=== PATIENT | female | born 1980 | race Caucasian/White ===

== ENCOUNTER → 2018-09-18 16:02 | Outpatient (CLI) | payer BC, SELFPAY ==
[2017-02-24 14:35] VITALS: BMI 41.5
[2018-09-18 17:47] LABS: Hematocrit 43.4 % (37-47); Mean Corp Hgb Conc 32.3 g/gl (32-36); Mean Corpuscular Hgb 29.1 pg (27.0-32.0); Mean Corpuscular Volume 90.2 fL (81-99); Mean Platelet Vol. 9.5 fl (6.2-12.0); Platelet Count 294 K/mm3 (150-450); RBC Distribution Width CV 12.8 % (11.6-14.6); Red Blood Count 4.81 M/mm3 (4.2-5.4); White Blood Count 7.3 K/mm3 (4.4-11.0)
[2018-09-18 18:01] LABS: Scan Indicated on CBC? Y/N NO
[2018-09-18 18:09] LABS: AST(SGOT) 18 U/L (15-37); Alanine Aminotransfer ALT/SGPT 32 U/L (13-56); Albumin, Serum 3.9 g/dL (3.2-5.0); Alkaline Phosphatase 52 U/L (45-117); Anion Gap 8 (5-15); BUN 12 mg/dL (7-18); BUN/Creat Ratio 15.2 RATIO (10-20); Calcium,Total 8.8 mg/dL (8.5-10.1); Chloride 106 mmol/L (98-107); Creatinine, Serum 0.79 mg/dL (0.55-1.02); EST Glomerular Filtration Rate 87 mL/min (>60); Est Glom Filt Rate - Afr Amer 105 mL/min (>60); Globulin 3.8 g/dL (2.2-4.2); Glucose 89 mg/dL (74-106); Potassium 3.9 mmol/L (3.5-5.1); Protein, Total 7.7 g/dL (6.4-8.2); Sodium Level 139 mmol/L (136-145); Thyroid Stim Hormone (TSH) 0.49 uIU/mL (0.358-3.74)
[2018-09-18 18:23] LABS: Vitamin B12 522 pg/mL (211-911); Vitamin D,25 Hydroxy 24.2 ng/mL (29.95-100.01)
== END ==
PROVIDERS: Family Provider Family Medicine; PCP Family Medicine; Referring Provider Family Medicine; Visit Provider Family Medicine
DX: R53.83 Other fatigue (principal)
CPT/HCPCS: 36415; 80053; 82306; 82607; 84443; 85027

== ENCOUNTER 2019-01-03 20:52 | Emergency (ER) | payer BC, SELFPAY ==
[2019-01-03 20:53] VITALS: BP 155/90; PULSE 81; RESP 18; TEMP 36.2; O2SAT 98; BMI 43.9
--- NOTE | 2019-01-03 21:16 | CT_ITS ---
STUDY: CT ABDOMEN AND PELVIS WITH CONTRAST REASON FOR EXAM: Female, 38 years old. Right-sided abdominal pain RADIATION DOSAGE (If Supplied By Facility): CTDIvol = ( 23.73 ) mGy, DLP = ( 1277.13 ) mGycm TECHNIQUE: Transaxial images were obtained from the dome of the diaphragm to the symphysis pubis without oral contrast. 100ML IV Isovue 300 was administered. Sagittal and coronal images were reconstructed. Individualized dose optimization techniques were used for this CT. COMPARISON: None. FINDINGS: Enhancing 9 mm density within the right breast incompletely included on the [id number]. The visualized lung bases are unremarkable. The visualized portions of the heart are within normal limits. There is 1.9 x 1.2 cm hypodensity right lobe of the liver. There are multiple gallstones. The gallbladder is decompressed.. Normal spleen. Normal pancreas. Normal bilateral adrenal glands. Normal right kidney. Normal left kidney. Normal visualized stomach. Normal small intestine. Normal colon. The appendix is visualized and appears normal. Normal abdominal aorta. Normal inferior vena cava. Normal retroperitoneum. Normal urinary bladder. There is small amount of free fluid in the pelvis. 1.7 x 1 cm likely left ovarian cyst. Normal abdominal wall. There is mild sclerosis of SI joints. CT/Abdomen/Pelvis W IV Cont ONLY IMPRESSION: Cholelithiasis, if there is clinical concern for acute or chronic cholecystitis a right upper quadrant ultrasound would be recommended Enhancing 9 mm density within the right breast incompletely included on the [id number] secondary to fibroadenoma or primary breast carcinoma, a right mammogram and breast ultrasound is recommended to further evaluate 1.9 x 1.2 cm hypodensity right lobe of the liver indeterminate on this study, further evaluation with MRI abdomen, multiphase exam with the without contrast is recommended to further evaluate Small amount of free fluid in the pelvis likely physiologic, 1.7 x 1.6 cm likely left ovarian cyst Bilateral sacroiliitis Electronically Signed: Aravind Enrique, at 22:48 EDT Tel , Service support ,
[2019-01-03 21:34] LABS: Mucous, Urine 0 SEEN /hpf (<or=2+)
[2019-01-03 21:37] LABS: Absolute Lymphocyte Count 2.09 X10^3/ul (0.83-4.51); Basophil# 0.01 X10^3/uL; Basophil% 0.2 % (0-1); Eosinophil# 0.06 X10^3/uL; Eosinophils% 0.9 % (0-5); Hemoglobin 13.4 g/dl (12.0-15.0); Lymphocyte # 2.09 X10^3/ul (4.0); Lymphocyte % 31.5 % (19-41); Mean Corp Hgb Conc 33.5 g/gl (32-36); Mean Corpuscular Hgb 29.5 pg (27.0-32.0); Mean Corpuscular Volume 87.9 fL (81-99); Mean Platelet Vol. 9.1 fl (6.2-12.0); Monocyte# 0.43 X10^3/uL; Monocyte% 6.5 % (0-10); Neutrophil # 4.04 X10^3/uL (2.7-7.7); Neutrophil % 60.7 % (47-70); POSITIVE COUNT NO; POSITIVE DIFFERENTIAL NO; POSITIVE MORPHOLOGY NO; Platelet Count 273 K/mm3 (150-450); RBC Distribution Width CV 12.5 % (11.6-14.6); RBC Distribution Width SD 39.7 fl (35.1-43.9); Red Blood Count 4.55 M/mm3 (4.2-5.4); White Blood Count 6.6 K/mm3 (4.4-11.0)
[2019-01-03 21:41] LABS: Color, Urine Yellow (Yellow); Glucose, Dipstick Normal (Normal); Ketone-Dipstick Negative (Negative); Leukocyte Esterase-Dipstick Negative /ul (Negative); Nitrite-Dipstick Negative (Negative); Occult Blood-Urine Negative /ul (Negative); Protein-Dipstick Negative (Negative); Specific Gravity, Urine 1.015 (1.002-1.030); Urine Bilirubin Dipstick Negative (Negative); Urine Clarity Clear (Clear); Urine Urobilinogen Normal (Normal)
[2019-01-03 21:42] LABS: Internal QC Validated? YES +Cl - CLEAR BKGD; Pregnancy, Urine Negative Negative
[2019-01-03 21:49] LABS: Bacteria RARE /hpf (None Seen); Red Blood Cells-Urine 0-5 SEEN /hpf (0-5); Squamous Epithelial Cells - UA 0-5 SEEN /hpf (5-10); White Blood Cells 0 SEEN /hpf (0-5)
[2019-01-03 21:57] LABS: AST(SGOT) 18 U/L (15-37); Alanine Aminotransfer ALT/SGPT 25 U/L (13-56); Albumin, Serum 3.6 g/dL (3.2-5.0); Alkaline Phosphatase 51 U/L (45-117); Anion Gap 4 (5-15); BUN 16 mg/dL (7-18); BUN/Creat Ratio 17.6 RATIO (10-20); Calcium,Total 8.6 mg/dL (8.5-10.1); Chloride 107 mmol/L (98-107); Creatinine, Serum 0.91 mg/dL (0.55-1.02); EST Glomerular Filtration Rate 74 mL/min (>60); Est Glom Filt Rate - Afr Amer 89 mL/min (>60); Estimated Creatinine Clearance 79.24 ml/min; Globulin 3.6 g/dL (2.2-4.2); Glucose 99 mg/dL (74-106); Lipase 161 U/L (73-393); Potassium 3.9 mmol/L (3.5-5.1); Protein, Total 7.2 g/dL (6.4-8.2); Sodium Level 138 mmol/L (136-145)
--- NOTE | 2019-01-03 22:32 | ED.VISSUMM ---
- ER Visit Summary Date of Service: 01/03/19 Chief Complaint: Abdominal pain History of Present Illness: The patient is a 38 F who for the past month has had a pain in the right upper quadrant. She describes it as a burning sensation that comes about 4 times a day and last 2 to 3 seconds. It is not changed by food. No fevers or rashes. Then for the past 2 weeks she has had a right lower quadrant pain described as a dull pain. Today however she notes nausea and was worried so she came to the hospital. Patient has had no prior abdominal surgeries. Physical Examination: Afebrile vital signs are stable Gen: Well-nourished well-developed Head: Normocephalic atraumatic Eyes: Perrl EOMI ENT: TMs clear no rhinorrhea moist mucous membranes Neck: Supple no lymphadenopathy no JVD nontender CVS: Regular rate rhythm no murmurs normal S1-S2 Respiratory: No distress clear to auscultation bilaterally chest nontender Abdomen: Soft nontender nondistended normal bowel sounds no masses Back: Nontender Extremity: Nontender no edema Skin: Normal color no rash Neuro: alert orientated ?3 CN II-XII intact normal strength sensation reflexes gait cerebellar Psych: Normal affect normal mood Test Results: CBC CMP lipase normal. Urinalysis and test negative. CT of the pelvis was obtained. This was negative for acute. Noted gallstones, left ovarian cyst and small amount of pelvic fluid. There is also a millimeter density in the right breast that is recommended to have further evaluation. Emergency Department Course and Treatment: The findings on the CT relayed to the patient. Her symptoms do not sound like biliary colic and there is no clinical or laboratory evidence of acute cholecystitis. Patient will need to follow-up with primary care and her INDEPENDENT INSURANCE ADJUSTER. She notes understanding. Impression: 1. Abdominal pain 2. 9 mm enhancing right breast density. 3. Left ovarian cyst. This note was generated with [employer] dictation software. It may contain incorrect words, spelling, and punctuation that were not noted in review of the chart prior to signing ED Disposition - Plan for ED Patient: Disposition: Home or Assisted Living Instructions: ABDOMINAL PAIN, Unknown Cause, (Female), What Are Gallstones? Referrals: Kervin Burt MD [Primary Care Provider] - 1 Week Additional Instructions: Please follow-up with your INDEPENDENT INSURANCE ADJUSTER regarding the right breast findings on CT today.
[2019-01-03 23:12] VITALS: BP 144/78; PULSE 80; RESP 18; O2SAT 100
== END 2019-01-03 23:12 | disposition home or self-care (01) ==
PROVIDERS: Emergency Provider Emergency Medicine; Family Provider Family Medicine; PCP Family Medicine
DX: R10.31 Right lower quadrant pain (principal); N83.202 Unspecified ovarian cyst, left side; R92.2 Inconclusive mammogram
CPT/HCPCS: 74177; 80053; 81001; 81025; 83690; 85025; 99283; Q9967; A4216

== ENCOUNTER → 2019-01-12 08:46 | Outpatient (CLI) | payer BC, SELFPAY ==
[2019-01-03 20:53] VITALS: BMI 43.9
--- NOTE | 2019-01-12 08:55 | US_ITS ---
STUDY: ABDOMINAL ULTRASOUND - RIGHT UPPER QUADRANT REASON FOR VISIT: Female, 38 years old. Cholelithiasis TECHNIQUE: Ultrasound evaluation of the right upper quadrant was performed with real-time and static scott-scale imaging. TECHNICAL QUALITY: Adequate. COMPARISON: None. FINDINGS: Liver: The liver measures 14.3 cm. There is diffusely increased echogenicity of the liver. The bile ducts are within normal limits. There is hepatic color flow. The direction of portal flow is hepatopetal. Small hypoechoic density in right lobe measuring 1.3 x 1.7 x 1 cm Gallbladder: Normal distended gallbladder. The gallbladder wall measures 2.5 mm. There is a negative sonographic Jeong's sign. There is no pericholecystic fluid. There are multiple gallstones. Common Bile Duct (C.B.D.): The common bile duct measures 6.8 mm. Pancreas: Normal size of the head, body and tail of the pancreas. There is normal echogenicity of the pancreas. There is no demonstrated pancreatic mass or cyst. Right Kidney: Normal size of the right kidney. The right kidney measures 11.9 x 5.9 x 6.1 cm. Normal renal cortex. The right cortex measures 1.6 cm. There is no demonstrated renal mass or cyst. There is no right hydronephrosis. US/Gallbladder IMPRESSION: Diffuse fatty infiltration of the liver. Cholelithiasis without evidence for acute cholecystitis. Mildly dilated common bile duct without definitive evidence for intraductal stone. MRI/MRCP would be helpful for definitive evaluation if indicated Electronically Signed: Sandro Oswald MD at 16:51 EDT , Service support ,
--- NOTE | 2019-01-12 08:57 | BI_ITS ---
MAMMOGRAPHY - BILATERAL DIAGNOSTIC REASON FOR EXAM: Female, 38 years old. Right breast nodule seen on a recent CT scan. PERTINENT HISTORY: Non-contributory. TECHNIQUE: Digital bilateral breast chris (3D mammographic acquisition) in the CC and MLO projections. 2-D mediolateral oblique (MLO) and craniocaudad (CC) views of both breasts were obtained. CAD: Full Field Digital Mammography with Computer Added Detection was performed. COMPARISON: None. Baseline examination. FINDINGS: Breast Composition: The breasts are heterogeneously dense, which may obscure small masses. There is a 1.3 cm x 1.5 cm well-defined nodule in the slightly inferior lateral aspect of the right breast. Correlation with ultrasound is recommended. No other significant abnormalities are identified. BI/DIAG MAMM W/CAD, BILAT IMPRESSION: 1.3 cm x 1.5 cm well-defined nodule in the slightly inferior lateral aspect of the right breast as described. Correlation with ultrasound is recommended. ASSESSMENT CATEGORY: BIRADS Category 0: Incomplete. Need additional imaging evaluation. A letter regarding these results will be sent to the patient by the facility within 30 days. Approximately 10% of breast cancers are not detected by mammography. A normal mammogram should not delay biopsy of a clinically suspicious abnormality. Electronically Signed: Philip Willis, at 11:16 EDT , Service support ,
--- NOTE | 2019-01-12 09:48 | US_ITS ---
STUDY: ULTRASOUND BREAST - RIGHT REASON FOR EXAM: Female, 38 years old. Abnormal screening mammogram. TECHNIQUE: Axial and longitudinal images of the RIGHT breast were performed with a high resolution ultrasound transducer. COMPARISON: Comparison is made with prior mammogram done earlier in the day. FINDINGS: RIGHT Breast: The mammographic abnormality corresponds to a 1 cm x 1 cm x 0.6 cm hypoechoic solid nodule at the 8:00 position breast at 4 cm from nipple. A biopsy is recommended for further evaluation. US/Breast Limited Unilateral IMPRESSION: 1 cm x 1 cm x 0.6 cm hypoechoic solid nodule at the 8:00 position breast at 4 cm from nipple. A biopsy is recommended. ASSESSMENT CATEGORY: BIRADS Category 4: Suspicious - Biopsy Should Be Considered. A letter regarding these results will be sent to the patient by the facility within 30 days. Electronically Signed: Philip Willis, at 11:25 EDT , Service support ,
== END ==
PROVIDERS: Family Provider Family Medicine; PCP Family Medicine; Referring Provider Family Medicine; Visit Provider Family Medicine
DX: K80.20 Calculus of gallbladder without cholecystitis without obstruction (principal); N63.0 Unspecified lump in unspecified breast
CPT/HCPCS: 76642; 76705; 77062; 77066; G0279

== ENCOUNTER → 2019-01-26 11:02 | Outpatient (CLI) | payer BC, SELFPAY ==
[2019-01-13 15:47] VITALS: BMI 43.9
--- NOTE | 2019-01-26 | IMM_PTH ---
PATIENT: NAHOMY VARGAS LOC: MRI U#:[id number] AGE/SX: 45/F ROOM: RE01/26/[address]: Dr. Aravind Groves MD : 1980 BED: DIS: SPEC #: [id number] RECD: 01/28/19 11:24 STATUS: TIFFANIE REQ #: [id number] PATY: 01/26/19 00:[address]: Aravind Groves DEPT: IMMUNOHISTOCHEMISTRY RECD BY: Nehal Piña ENTERED: 01/28/19 11:25 SP TYPE: IMMUNO OTHR DR: Dr. Yossi Burt MD Tissues: Right breast, NOS Procedures: Calponin-1(initial) P40 (add) PHYSICIAN & INSTITUTION [place] [id number] SPECIMEN INFORMATION: Tissue Source: Right breast Clinical Info: Abnormal right breast ultrasound Specimen Number: [id number] CPT code: 97905, 26182 METHODOLOGY: Deparaffinized sections of prefer/formalin-fixed tissue or PAP/DQ stained slides are incubated with monoclonal/polyclonal antibodies/oligonucleotide probes. Localization is made via biotin free immunoperoxidase method. Appropriate controls are performed and reacted as expected. Results on target cell population are indicated in the following table: RESULTS: ANTIBODY / CLONE RESULT P40 (BC28) positive Calponin-1 (MJ603T) positive These tests were developed and their performance characteristics determined by [facility]. They may not have been cleared or approved by the U.S. Food and Drug Administration. The FDA has determined that such clearance or approval is not necessary. INTERPRETATION: Right breast, biopsy: Fibroadenoma with focal adenosis. Negative for malignancy. SJ:abraham 01/29/19
--- NOTE | 2019-01-26 11:05 | MRI_ITS ---
STUDY: MRI ABDOMEN WITH AND WITHOUT CONTRAST REASON FOR EXAM: Female, 38 years old. Follow-up liver abnormality. Abnormal CT. TECHNIQUE: Standardized fat and water weighted pulse sequences were obtained in all 3 orthogonal planes post contrast administration. 24 IV Dotarem was administered for the contrast portion of the examination. COMPARISON: CT dated January 03, 2019 and ultrasound dated January 12, 2019 FINDINGS: The visualized lung bases are unremarkable. The visualized portions of the heart are within normal limits. There is a marked decrease in the signal intensity of the liver on the axial T1-weighted images on the opposed-phase images as compared to the in-phase images, consistent with diffuse steatosis. Within the right hepatic lobe there is a 1.5 x 1.8 x 0.9 cm T1 hypointense and T2 hyperintense nodule that demonstrates peripheral nodular enhancement consistent with a hemangioma corresponding to the region of concern on the patient recent CT. There are multiple gallstones. Normal spleen. Normal pancreas. Normal bilateral adrenal glands. Normal right kidney. Normal left kidney. Normal visualized stomach. Normal small intestine. Normal colon. There is non-visualization of the appendix. Normal abdominal aorta. Normal inferior vena cava. Normal retroperitoneum. Normal abdominal wall. Normal osseous structures. MRI/MRI Abd WITH and W/O Contrast IMPRESSION: 1.5 x 1.8 x 0.9 cm hepatic hemangioma corresponding to the lesion of concern on recent CT. Cholelithiasis. Fatty infiltration of the liver. Electronically Signed: Daphney Caban MD at 17:00 EDT Tel , Service support ,
--- NOTE | 2019-01-26 12:35 | BRBX_PTH ---
PATIENT: NAHOMY VARGAS LOC: MRI U#:[id number] AGE/SX: 45/F ROOM: RE01/26/[address]: Dr. Aravind Groves MD : 1980 BED: DIS: SPEC #: [id number] RECD: 01/26/19 16:52 STATUS: TIFFANIE RIAN #: [id number] PATY: 01/26/19 12:[address]: Aravind Groves DEPT: SURGICAL PATHOLOGY RECD BY: Cayden Bender ENTERED: 01/27/19 08:52 SP TYPE: BREAST BX OTHR DR: Dr. Yossi Burt MD Tissues: Right breast, NOS Procedures: Surgery Specimen Level IV HEADER OPERATION: Right breast biopsy PRE-OP DIAGNOSIS: Abnormal right breast ultrasound TISSUE SUBMITTED: Right breast tissue ISCHEMIC TIME: 10 seconds FIXATION TIME: 31 hours MICROSCOPIC DIAGNOSIS Right breast tissue, core biopsy: Fibroadenoma with focal adenosis. Negative for atypia or malignancy. See comment. SUSSY:abraham 01/28/19 COMMENT Immunohistochemistry ([id number]) supports the above diagnosis. MICROSCOPIC DESCRIPTION Slides are reviewed. GROSS DESCRIPTION Received in fixative is one container labeled with the patient's name and designated right breast. The specimen consists of multiple elongated fragments of mabry-yellow fibroadipose tissue that in aggregate measure 1 x 0.5 x 0.1 cm. The entire specimen is submitted in one cassette. / SUSSY:abraham 01/27/19 TC:1 CPT: 20674
== END ==
PROVIDERS: Family Provider Family Medicine; PCP Family Medicine; Referring Provider Surgery; Visit Provider Surgery
DX: D24.1 Benign neoplasm of right breast (principal)
CPT/HCPCS: 74183; 88305; 88341; 88342; A9575

== ENCOUNTER 2019-02-05 11:26 | Day surgery (SDC) | payer BC, SELFPAY ==
--- NOTE | 2019-01-13 05:56 | HP_ITS ---
Intake Vital Signs 01/13/19 Body Mass Index (BMI) 43.9 01/13/19 Height 5 ft 6 in 01/13/19 Weight: 267 lb 9 oz 01/13/19 Body Mass Index (BMI) 43.2 01/13/19 Blood Pressure 142/77 H 01/13/19 Blood Pressure Location Rt brachial 01/13/19 Respiratory Rate 20 H 01/13/19 Pulse Rate 86 01/13/19 Pulse Ox 98 Intake Visit Reasons: R Breast Birads 4/Gallstones [facility] CT 01/03 US 01/12 Chief Complaint: gallstones and abn breast US Corporate Officer Required: No Is patient in pain?: Yes Allergies bupropion [From Wellbutrin SR] Allergy (Intermediate, Verified 01/13/19 15:47) tongue swelling escitalopram [From Lexapro] Allergy (Intermediate, Verified 01/13/19 15:47) tongue swelling salmeterol xinafoate [From Serevent] Allergy (Verified 01/03/19 20:56) Swelling Medications Ibuprofen [Motrin] 600 mg PO Q6H PRN PRN #20 tab 09/08/13 [Rx Confirmed 01/13/19] omeprazole 20 mg capsule,delayed release 20 mg PO DAILY 01/13/19 [History Confirmed 01/13/19] Is last menstrual period known: No Post menopausal: No Patient : No PFSH Medical History (Updated 01/13/19 @ 17:53 by Aravind Groves MD) Abnormal mammogram of right breast (Acute) Cholelithiasis with chronic cholecystitis (Chronic) Exercise-induced asthma (Acute) GERD (gastroesophageal reflux disease) (Acute) Gallstones (Acute) Ovarian cyst (Acute) Surgical History (Updated 01/13/19 @ 15:45 by Hattie Angel) History of local excision of skin lesion (Acute) History of tonsillectomy (Acute) Family History (Updated 01/13/19 @ 15:45 by Hattie Angel) Mother Diabetes Heart disease Kidney disease Myocardial infarction Father Cancer appendix Social History (Updated 01/13/19 @ 17:56 by Aravind Groves MD) Smoking Status: Never smoker HPI HPI HPI: NAHOMY VARGAS, is a 38 F who presents to the office today for HPI HPI Surgical H&P: Yes HPI: NAHOMY VARGAS, is a 38 F who presents to the office today for surgical consultation regarding 2 separate issues. The patient had abdominal pain. She had a CT scan performed demonstrating a right breast lesion as well as gallstones. The patient is referred because of abnormal breast imaging and right upper quadrant pain and gallstones. The patient is referred by primary care providers Dr. Yossi Burt and Dr Rm Puga and a written copy of my surgical consult recommendations will return to them 38-year-old female. G4, . Menarche at age 16. First child was born when she was 24. She did breast-feed. No history of previous breast biopsies. No history of estrogen replacement. Family history is negative for breast cancer. Approximately December 24, 2018 she developed episodes of sharp right upper quadrant pain followed by a constant aching pain. She searched online and because the pain did not resolve on January 03, 2019 she went to the emergency room. Work-up there included a CT scan of the abdomen and pelvis. This demonstrated a 9 mm density within the right breast incompletely seen possible malignancy possible fibroadenoma. In addition there is a 1.9 x 1.2 cm hypodensity of the right lobe of the liver. In addition multiple gallstones were seen. There was some free fluid in the pelvis and likely a 1.7 cm diameter left ovarian cyst. On that same day January 03, 2019 white count was 6.6 with a hemoglobin 13.4 hematocrit 40 and platelet count of 273,000. BUN is 16 creatinine 0.94. Liver function tests were normal. Lipase normal at 161. The patient initially was referred based upon the persistent right upper quadrant pain and suspected chronic cholecystitis cholelithiasis. However breast imaging was pursued on January 12, 2019. The breasts are felt to be dense. There is a 1.3 x 1.5 cm well-defined nodule inferior lateral aspect of the right breast. Correlation with ultrasound was recommended. BI-RADS Category 0. Subsequently same day right breast ultrasound was performed. This demonstrates a 1 x 1 x 0.6 cm hypoechoic solid nodule 8 o'clock position +4 cm. BI-RADS Category 4. Biopsy recommended. The patient is additionally referred for surgical consultation regarding the abdominal pain gallstones as well as the lower outer right breast mass. The patient is not able to detect the right breast mass on self-examination. Her abdominal issues still persist. She has been placed on a low residue diet. She has had some increased comfort with that. She has had episodes however that awaken her at night. ROS General General: Yes weight change and fatigue; no appetite, colon cancer, breast cancer or weakness HEENT HEENT: No difficulty swallowing, eye injury, eye surgery, swollen glands or hoarseness Endo Endocrine: No thyroid disease, diabetes mellitus, thyroid cancer, Hair loss, heat intolerance or cold intolerance Breast Breast: Yes abnormal mammogram and abnormal US; no left breast lump, right breast lump, nipple discharge, breast pain or breast enlargement Cardio Cardiovascular: No murmur, pacemaker, heart disease, atrial fibrillation, high blood pressure, heart attack, heart stent, palpitations, shortness of breat with exertion or chest pain Resp Respiratory: No shortness of breath, No sleep apnea, No cough, No COPD, Yes asthma, No emphysema, No wheezing Gastro Gastrointestinal: Yes abdominal pain, No nausea or vomiting, No diarrhea, No constipation, No blood in stool, Yes acid reflux, No hemorrhoids, No ulcers, Yes gallbladder problem, No black,tarry stools Baudilio Hematologic: No blood thinners, No blood disorders, No bleeding, No anemia, No blood clots Neuro Neurologic: No weakness Exam Const General: cooperative, comfortable, no acute distress Nutritional Appearance: obese morbidly obese Orientation: alert, awake, oriented x3 HENMT Head: normal to inspection Eyes General: appearance normal, both eyes and all related structures Chest Breast Palpation: No nipple discharge Other: Right breast: No focal mass. No nipple discharge. No axillary or clavicular adenopathy Left breast: No focal mass. No nipple discharge. No axillary or clavicular adenopathy Resp Effort & Inspection: normal respiratory effort Auscultation: clear to auscultation bilaterally Cardio Rate: regular rate Rhythm: regular rhythm Heart Sounds: no murmurs GI Inspection: obesity Palpation: soft, no hepatosplenomegaly Auscultation: normal bowel sounds Musc Cervical Spine: normal cervical lordosis Skin General: no rashes or lesions noted Neuro Cognition: normal cognition Extrem General: no calf tenderness bilaterally Psych Affect: normal affect Assessment & Plan Problems 1. Calculus of gallbladder with chronic cholecystitis without obstruction K80.10 2. Abnormal mammogram of right breast R92.8 Plan I have personally reviewed the patient's breast imaging. I am hopeful that this incidental lower outer right breast nodule is benign. I suspect possible fibroadenoma or intramammary lymph node. I have proposed for the patient a ultrasound-guided needle core biopsy of this area. I have described the technique, benefit, risks, alternatives. She has had an opportunity to ask and have questions answered. Unfortunately I have urgent surgery today so we will need to schedule soon. I believe that the patient's complaint of epigastric right upper quadrant pain with some radiation to the back correlates well with her findings of gallstone disease. Again in detail I discussed with her the technique, benefit, risks, alternatives of a laparoscopic cholecystectomy with selective cholangiography. No guarantees of success have been offered. The patient is aware the potential conversion to an open technique. We have discussed potential injury to bile ducts. She has had an opportunity to ask and have questions answered. She will remain on her low-fat low residue diet while we are proceeding with scheduling. I very much appreciate the kind opportunity of assisting with her surgical care CC: Dr. Yossi Burt and Dr Rm Groves M.D., F.A.C.S. Orders Orders: MRI Abd WITH and W/O Contrast Today R93.2 Coding Level of Care Code 63625 Diagnoses Calculus of gallbladder with chronic cholecystitis without obstruction K80.10 ??Cholelithiasis location: gallbladder ??Biliary obstruction: without biliary obstruction Abnormal mammogram of right breast R92.8 01/13/19 1756 <Electronically signed by Aravind feliz MD> Date _ Aravind Groves MD The patient had an upper endoscopy with biopsy. Findings demonstrated very mild gastritis and esophagitis which is not felt to correlate with the patient's severity of symptoms. H. pylori was negative. Plan to proceed with laparoscopic cholecystectomy with selective cholangiography as noted above. Aravind Groves M.D., F.A.C.S.
[2019-01-13 15:47] VITALS: BMI 43.9
[2019-01-26 12:54] VITALS: BMI 43.9
--- NOTE | 2019-02-04 10:31 | EKG12_ITS ---
Test Reason : PRE OP Blood Pressure : / mmHG Vent. Rate : 056 BPM Atrial Rate : 056 BPM P-R Int : 166 ms QRS Dur : 096 ms QT Int : 412 ms P-R-T Axes : 046 002 024 degrees QTc Int : 397 ms Sinus bradycardia Otherwise normal ECG Confirmed by YANETH ESTES, MEAGHAN ([id number]), video tape editor PETRA DE LA TORRE ([id number]) on 02/05/2019 1:27:50 PM Referred By: Aravind Groves Confirmed By:MEAGHAN WOLFE MD
[2019-02-04 12:36] LABS: Prothrombin Time (Protime)PT. 12.6 SECONDS (11.7-14.9)
[2019-02-04 12:37] LABS: Partial Thromboplast Time 27.9 Seconds (24.1-36.2)
[2019-02-05] VITALS (10 sets, daily range): BP systolic 90–130; BP diastolic 59–79; PULSE 56–78; RESP 16; TEMP 36.1–36.7; O2SAT 92–100; BMI 42.4
[2019-02-05 11:52] LABS: Internal QC Validated? YES +Cl - CLEAR BKGD; Pregnancy, Urine Negative Negative
--- NOTE | 2019-02-05 12:29 | PCM.DC.GS ---
Discharge Diet: Light diet - advance as tolerated - if you have questions about your diet instructions, please talk to you doctor. Discharge Activity: May Not Drive - for 3-5 days or while taking narcotic pain medicine. May shower in (days): 1 Lifting Restrictions: 10 pounds Call your doctor if your incision/area has: Continuous Slow Oozing, Sudden Increased Bleeding, Increased Pain/ Swelling, Increased Redness, Foul Smelling Discharge Call your doctor if you observe: Fever of 101 or Higher Suture Line Care: Avoid Pulling/Pushing, Avoid Pinching/Bending Additional Dressing/Incision Instructions:: Change or remove dressing in 4 days. Leave steri-strips in place for 1 week. Allergies/Adverse Reactions: Allergies bupropion [From Wellbutrin SR] Allergy (Intermediate, Verified 02/05/19 11:53) tongue swelling escitalopram [From Lexapro] Allergy (Intermediate, Verified 02/05/19 11:53) tongue swelling salmeterol xinafoate [From Serevent] Allergy (Verified 02/05/19 11:53) Swelling Medications to take at Discharge omeprazole 20 mg capsule,delayed release 40 mg PO DAILY 01/13/19 Albuterol Inhaler [Ventolin Hfa (SP)] 1 - 2 puff INHALATION Q6H PRN PRN 02/04/19 Ibuprofen [Motrin] 400 mg PO Q6H PRN PRN 02/04/19 L.acidoph,Paracasei, B.lactis [Probiotic] 1 ea PO DAILY 02/04/19 Orders to be completed after discharge: 12 Lead EKG [CVS] Time Frame: 02/04/19, Facility: [facility], Location: Cardiovascular Services Partial Thromboplast Time Time Frame: 02/04/19, Facility: [facility], Location: Laboratory Prothrombin Time w/INR Time Frame: 02/04/19, Facility: [facility], Location: Laboratory Primary Care Physician: Kervin Burt MD [Primary Care Provider] - Test Results: Test results from this visit will be discussed in further detail at your follow-up appointment, if applicable. Please Follow Up With: Aravind Groves MD - [phone] When: Call to make an appointment to be seen in about 10 days.
--- NOTE | 2019-02-05 13:00 | RAD_ITS ---
CLINICAL HISTORY: Female, 38 years old. Abdominal pain PROCEDURE: CHOLANGIOGRAM - intraoperative FLUOROSCOPY TIME (if supplied): (0:13) minutes/seconds TECHNIQUE: (All elements of maximal sterile barrier technique followed, including US elements as applicable) 13.5 seconds of fluoroscopy of the abdomen was utilized and operating room during intraoperative cholangiogram and 70 images submitted for interpretation. Next FINDINGS: A cannula seen within the cystic duct remnant. Examination the common bile duct demonstrates no evidence of filling defect to suggest common bile duct stone. There is spillage of contrast through the ampulla into the duodenum. RAD/Cholangiogram/ O R,Initial IMPRESSION: No common bile duct stone. Electronically Signed: Ran Lorenzo MD at 15:18 EDT Tel , Service support ,
--- NOTE | 2019-02-05 13:00 | GALL_PTH ---
PATIENT: NAHOMY VARGAS LOC: [facility] [place] U#:[id number] AGE/SX: 38/F ROOM: RE02/05/[address]: Dr. Aravind Groves MD : [id number] BED: DIS: 02/05/2019 SPEC #: [id number] RECD: 02/05/19 16:00 STATUS: TIFFANIE RIAN #: [id number] PATY: 02/05/19 13:[address]: Aravind Groves DEPT: SURGICAL PATHOLOGY RECD BY: Rm Hussein ENTERED: 02/06/19 07:53 SP TYPE: CHELSEY CASSIDY DR: MD Dr. Mohsen Alcantra MD Tissues: Gallbladder, NOS Procedures: Surgery Specimen Level III HEADER OPERATION: Laparoscopic cholecystectomy with IOC PRE-OP DIAGNOSIS: Calculus of gallbladder with chronic cholecystitis without obstruction TISSUE SUBMITTED: Gallbladder MICROSCOPIC DIAGNOSIS Gallbladder, cholecystectomy: Chronic cholecystitis and cholelithiasis. AM:abraham 02/09/19 MICROSCOPIC DESCRIPTION Slides are reviewed. GROSS DESCRIPTION Received is one container labeled with the patient's name and designated gallbladder. The specimen consists of a gallbladder measuring 6.5 x 3.5 x 2.5 cm. The external surface is smooth and glistening. Focally, it is granular, hemorrhagic and contains cautery artifact. The lumen of the gallbladder contains yellow-green mucoid bile and multiple mabry-yellow calculi ranging in size <0.5 to 1 cm in greatest dimension. The mucosa is bile-stained and without any mass lesions. The gallbladder wall averages 0.2 cm in thickness and is free of mass lesions. [employer] sections of the gallbladder and the cystic duct are submitted in one cassette. / AM:abraham 02/06/19 TC:3 CPT: 81965
[2019-02-05] MEDS: Cefazolin 2 GM in 0.9% Normal Saline 100 ML IV (13:03)
--- NOTE | 2019-02-05 14:48 | PCM.OPRPT ---
Problem List (1) Cholelithiasis with chronic cholecystitis Status: Chronic Qualifiers: Cholelithiasis location: gallbladder Biliary obstruction: without biliary obstruction Qualified Code(s): K80.10 - Calculus of gallbladder with chronic cholecystitis without obstruction
[2019-02-05] MEDS: Bupivacaine Mpf 0.5% 30 ML VIAL (14:49)
--- NOTE | 2019-02-05 14:51 | PCM.OPRPT ---
Problem List (1) Cholelithiasis with chronic cholecystitis Status: Chronic Qualifiers: Cholelithiasis location: gallbladder Biliary obstruction: without biliary obstruction Qualified Code(s): K80.10 - Calculus of gallbladder with chronic cholecystitis without obstruction Report of Operation Date of Procedure: 02/05/19 Pre-Operative Diagnosis: Chronic cholecystitis cholelithiasis Post-Operative Diagnosis: Same Surgery/Procedure Performed:: Laparoscopic cholecystectomy with selective cholangiography Description of Surgical Findings:: 38-year-old female. She was taken out from placement table. She underwent general endotracheal intubation anesthesia. The abdomen sterilely prepped and draped. She received 2 g of Ancef intravenously. 0.5% Marcaine was used as local anesthetic. Throughout the procedure a total of 30 cc was used. A vertical infraumbilical incision was created. Holding sutures of 0 Vicryl placed varies needle inserted. Saline drop test performed. The abdomen was insufflated with CO2 to pressure of 10 mmHg pressure. Mary trocar inserted. 10 laparoscope inserted. 5-minute trochars were placed in the epigastric and right upper quadrant. The gallbladder was distracted. Blunt dissection was instilled the infundibulum. Tedious dissection was required. The patient's morbid obesity made this very challenging. The gallbladder was used to elevate the liver tedious careful blunt dissection was sent to the infundibulum until clearly the cystic duct and cystic artery was identified. 2 hemo-lock clips were placed on the cystic artery proximally one distally prior to transecting it. If critical view was achieved. The infundibular area was still further adherent I had to do more dissection in that area. Having achieved adequate hemoclips on the cystic duct through a 14-gauge Angiocath placed a cholangiogram catheter. Fluoroscopically control claims grams were obtained demonstrating normal ductal anatomy. I had developed the cystic duct back to evacuate stones and sludge from the cystic duct. Then I placed 3 extra-large Hem-o-adi clips on the cystic duct stump to 4 securement 1 to obtain hemostasis from the sole. Duct vessel. Then the gallbladder was dissected free from the liver bed electrocautery. There was oozing from several spots that was treated with electrocautery. The right upper quadrant irrigated and aspirated free of excess fluid. To further assure hemostasis I placed 2 pieces of fibrillar in the liver bed. This area was inspected over a period of time was noted to be hemostatic. The gallbladder was exited at the umbilicus after retrieving it in a retrieval bag. The umbilical fascial defect was approximated with a 0 Vicryl utilizing a grainy needle in a [id number] fashion. Now the liver bed area was again inspected was noted to be hemostatic. Remaining trochars removed under visualization. The abdomen was allowed to deflate of the CO2. The skin edges were approximated interrupted 4 Monocryl subdermal stitches. Steri-Strips and Telfa and OpSite dressings applied. Specimen gallbladder. Drains none. Blood loss 20 cc. She was taken to the recovery area in satisfactory condition without apparent complication Aravind Groves M.D., F.A.C.S. Type of Anesthesia:: General Anesthesiologist: Mikey Carter
--- NOTE | 2019-02-05 16:49 | SUR.PHASEII ---
patient nauseated. had moderated liquid emesis at 1430. states she feels somewhat better after but does not feel she wants to put any medications on her stomach at this time. order for scopolamine patch from anesthesia obtained and patch placed on patient. patient is resting with eyes closed. at bedside.
[2019-02-05] MEDS: Acetaminophen 325 MG Tablet 650 MG PO (17:45)
== END 2019-02-05 18:20 | disposition home or self-care (01) ==
LOC: SDC 11:29 → AC 11:30
PROVIDERS: Anesthesiology; Family Provider Family Medicine; PCP Family Medicine; Referring Provider Surgery; Visit Provider Surgery
PROC: (CPT 47610; principal; 2019-02-05 12:40)
DX: K80.10 Calculus of gallbladder with chronic cholecystitis without obstruction (principal); E66.01 Morbid (severe) obesity due to excess calories; Z68.41 Body mass index [BMI] 40.0-44.9, adult; Z87.891 Personal history of nicotine dependence; N63.13 Unspecified lump in the right breast, lower outer quadrant
CPT/HCPCS: 47563; 36415; 74300; 76000; 81025; 85610; 85730; 88304; 93005; J7120; J2405

== ENCOUNTER → 2019-05-18 16:30 | Outpatient (CLI) | payer BC, SELFPAY ==
[2019-05-18 14:39] VITALS: BMI 42.4
== END ==
PROVIDERS: Family Provider Family Medicine; PCP Family Medicine; Referring Provider Nurse Practitioner Women's Health; Visit Provider Nurse Practitioner Women's Health
DX: L29.2 Pruritus vulvae (principal)
CPT/HCPCS: 87070; 87077; 87186; 87205

== ENCOUNTER → 2019-08-18 17:23 | Outpatient (CLI) | payer BC, SELFPAY ==
[2019-08-18 13:19] VITALS: BMI 42.4
[2019-08-21 13:45] LABS: HPV APTIMA, High Risk Negative (Negative)
== END ==
PROVIDERS: PCP Family Medicine; Referring Provider Obstetrics & Gynecology; Visit Provider Obstetrics & Gynecology
DX: Z12.4 Encounter for screening for malignant neoplasm of cervix (principal)
CPT/HCPCS: 87624; 88175; G0145

== ENCOUNTER → 2019-11-20 08:16 | Outpatient (CLI) | payer BC, SELFPAY ==
[2019-08-18 13:19] VITALS: BMI 42.4
[2019-11-20 10:29] LABS: Hematocrit 40.5 % (37-47); Hemoglobin 13.1 g/dL (12.0-15.0); Mean Corp Hgb Conc 32.3 g/dL (32-36); Mean Corpuscular Hgb 29.3 pg (27.0-32.0); Mean Corpuscular Volume 90.6 fL (81-99); Mean Platelet Vol. 9.4 fl (6.2-12.0); Platelet Count 288 K/mm3 (150-450); RBC Distribution Width CV 12.3 % (11.6-14.6); Red Blood Count 4.47 M/mm3 (4.2-5.4); White Blood Count 7.7 K/mm3 (4.4-11.0)
[2019-11-20 11:17] LABS: Anion Gap 7 (5-15); BUN 13 mg/dL (7-18); BUN/Creat Ratio 15.4 RATIO (10-20); Calcium,Total 8.7 mg/dL (8.5-10.1); Chloride 104 mmol/L (98-107); Cholesterol 194 mg/dL (200); Creatinine, Serum 0.84 mg/dL (0.55-1.02); EST Glomerular Filtration Rate 80 mL/min (>60); Est Glom Filt Rate - Afr Amer 97 mL/min (>60); Glucose 96 mg/dL (74-106); High Density Lipoprotein 59 mg/dL; Potassium 4.1 mmol/L (3.5-5.1); Sodium Level 137 mmol/L (136-145); Thyroid Stim Hormone (TSH) 0.77 uIU/mL (0.358-3.74); Triglycerides 78 mg/dL; Very Low Density Lipoprotein 16 mg/dL (5-40)
--- OUTSIDE RECORDS SUMMARY | 2020-04-19 11:01 | XMS RPT_ITS | CCD ---
:1980 External Reference #:[id number] Author Organization [employer] Care Team Providers Name Role Phone PA, (NIGHT SHIFT) Unavailable Unavailable Allergies Reported Allergen Reaction(s) Severity Date of Onset Location salmeterol Translations: AOF Unknown 03-09-2005 - [facility] [ SALMETEROL XINAFOATE] [facility] Repository Problems Category Problem Name Status Date Location Unclassified Unknown / UNK(Unknown) Active 12-18-2017 - [facility] ([id number]) Results Result Name Value Range Unit Interpretation Flag Date Location xr tibia/fibula 2 views left on 2019-04-23 XR TIBIA/FIBULA 2 ORIGINAL Normal 04-23-2019 A [facility] VIEWS LEFT XR TIBIA/FIBULA 2 VIEWS LEFT [facility] ([place]) ([id number]) CLINICAL STATEMENT: injury. COMPARISON: None FINDINGS: No acute fracture or dislocation is identified. There is no radiopaque foreign body. X-ray ankle dictated separately. IMPRESSION: No acute fracture or dislocation. Interpreted By: Tanya Farley MD Preliminary Report By: Tanya Farley MD Electronically Signed By: Tanya Farley MD Dictated Date: 04/23/2019 1:10:28 PM Prelim Date: 04/23/2019 1:10:28 PM Sign Date: 04/23/2019 1:11:14 PM Ordering Provider:Diandra Harmon xr spine thoracic 3 views on 2019-04-23 XR SPINE THORACIC ORIGINAL Normal 04-23-2019 A [facility] 3 VIEWS XR SPINE THORACIC 3 VIEWS [facility] ([place]) ([id number]) CLINICAL STATEMENT: injury. COMPARISON: None FINDINGS: Evaluation of the upper thoracic spine is limited on the lateral images because of the shoulders. No vertebral body height loss or significant listhesis is visible. The included ribs are gross ly intact. Mild multilevel degenerative changes are present. IMPRESSION: No compression deformity or significant listhesi s. Interpreted By: Saman Galdamez Preliminary Report By: Saman Galdamez Electronically Signed By: Saman Galdamez Dictated Date: 04/23/2019 2:21:35 PM Prelim Date: 04/23/2019 2:21:35 PM Sign Date: 04/23/2019 2:21:46 PM Ordering Provider:Diandra Harmon xr spine lumbar ap/lat on 2019-04-23 XR SPINE LUMBAR ORIGINAL Normal 04-23-2019 [facility] AP/LAT XR SPINE LUMBAR AP/LAT [facility] ([place]) ([id number]) CLINICAL STATEMENT: injury. COMPARISON: None FINDINGS: There are 5 lumbar type vert ebral bodies and a transitional lumbosacral vertebral body with sacralization on the RIGHT. Alignment is maintained. Vertebral body heights are preserved. No acute fracture o r traumatic malalignment noted. IMPRESSION: No compression deformity or significant listhesis. Interpreted By: Tanya Farley MD Preliminary Report By: Tanya Farley MD Electronically Signed By: Tanya Farley MD Dictated Date: 04/23/2019 11:37:02 AM Prelim Date: 04/23/2019 11:37:02 AM Sign Date: 04/23/2019 11:38:30 AM Ordering Provider:Diandra Harmon xr ankle minimum 3 views left on 2019-04-23 XR ANKLE MINIMUM 3 ORIGINAL Normal 04-23-2019 [facility] VIEWS LEFT XR ANKLE MINIMUM 3 VIEWS LEFT [facility] ([place]) ([id number]) CLINICAL STATEMENT: injury. COMPARISON: None FINDINGS: No acute fracture or dislocation is identified. The ankle mortise and talar dome are normal. Dorsal and plantar calcaneal spurs noted. The joint spaces are maintained. There is no radiopaque foreign body. IMPRESSION: No acute fracture or dislocation. Interpreted By: Tanya Farley MD Preliminary Report By: Tanya Farley MD Electronically Signed By: Tanya Farley MD Dictated Date: 04/23/2019 1:11:34 PM Prelim Date: 04/23/2019 1:11:34 PM Sign Date: 04/23/2019 1:12:02 PM Ordering Provider:Diandra Harmon progress on 2017-12 PROGRESS HNO ID: [id number] Normal 12-24-2017 [facility] Author: Ada Melissa Psr ([id number]) Service: (none) Author Type: (none) Type: Progress Notes Filed: 12/24/2017 12:36 PM Note Text: pap logged. Ada Perezr cnco on 2017-12-24 CNCO Letter Aubree Lance's Ebony l 12-24-2017 [facility] [facility] ([id number]) [place], [place] [address]Secgq: Nahomy Vargas[address] [facility]oo[facility] [id number] #: [id number] Nahomy, This letter is to inform you that your pap smear has come back showing ASCUSwhich stands for atypical squamous cells of undetermined significance.Basically, this is another way of telling you that your pap showed someabnormal cells. This is of minimal concern as a lot of times some of thesecells can be caused by an inflammation of your cervix, recent intercourse, arecent period, or a recent or present vaginal bacterial or fungal infection.Your HPV results, a tool we also use to screen for cervical cancer, came backnegative (normal). 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 Please feel free to call us if you have anyquestions regarding your test results at the phone number above.Sincerely,Kendy Mcgrath CNP progress on 2017-12 PROGRESS HNO ID: [id number]: Kendy (Dominique) Barrera pace 12-18-2017 [facility] GutieService: (none)Author Type: [place] ([id number]) Nurse PractitionerType: Progress NotesFiled: 12/18/2017 8:36 AMNote Text:Nahomy Vargas is a 37 year old who presents for her annualgynecologic exam without complaints.Menses: cycles every 28 days and 3 days of flow.Contraception: vasectomyHPV vaccine: NoLast Pap: 2013 normal HPV: negativeHistory of abnormal pap: Yes, LEEP 2007Last mammogram: neverSexually active: YesPatient concerns for STD exposure: No.Time with current partner: 5 yearsPain with intercourse: NoPostcoital bleeding: NoExercise: not at current timeDiet: lean meats, vegetables and fruit - began this week. Had lost over 60pounds 2 years ago but has gained most of the weight back.Seatbelt use: YesObstetric History T4 L4 SAB0 TAB0 Ectopic0 Multiple0 Live [id number] MEDICAL HISTORYDiagnosis Date- Migraine, unspecified, with intractable migraine, so stated, withoutmention of status migrainosus Migraine- Papanicolaou smear of cervix with high grade squamous intraepitheliallesion (HGSIL) 2006- Unspecified asthma, with exacerbationPAST SURGICAL HISTORYProcedure Laterality Date- CERVIX UTERI CONIZA LP ELCTRO EXCI 05/23/2007 LEEP-Cervix for path and colpo descrepancy- COLPOSCOPY (VAGINOSCOPY) Colposcopy- REMOVAL OF TONSILS,<12 Y/O TonsillectomyFAMILY HISTORYProblem Relation Age of Onset- Diabetes Mother- Heart Mother- Hypertension Mother- Kidney Disease Mother- Stroke Maternal Grandmother- Alcohol/Drug Maternal Grandfather ALCOHOL- Cancer Maternal Grandfather lung- Asthma Paternal Grandfather- Heart Paternal Grandfather- Diabetes Paternal GrandfatherSOCIAL HISTORYSocial HistorySubstance Use Topics- Smoking status: Former Smoker Years: 8.00 Types: Cigarettes Quit date: 01/24/2010- Smokeless tobacco: Never Used- Alcohol use Yes Comment: RARELY BUT NOT WHILE REVIEW OF SYSTEMSAbdomen: No abdominal pain, nausea, vomiting, diarrhea, or constipation.No bloating, early satiety, indigestion, or increased flatulence.Bladder: No dysuria, gross hematuria, urinary frequency, urinary urgency,or incontinence.Breast: No breast lumps, nipple d/c, overlying skin changes, redness orskin retraction. Bilateral breast tenderness this past week - was onvacation and doing a lot of lifting.Allergies and current medication updated:YesEXAM: BP 106/68 Ht 5' 5.5 (1.66m) Wt 258 lb (117.0kg) LMP12/01/2017 BMI 42.27 kg/(m2).GENERAL: pleasant, female in no apparent distressHEENT: Normocephalic, atraumatic, mucus membranes moist and no lesionsNECK: Supple, full range of motion, no adenopathy and thyroid normalDERMATOLOGY: Normal, without lesions, non-icteric and non-hirsuteBREAST: soft, non-tender, symmetric, no dominant mass, normalnipple-areolar complex, no lymphadenopathy and no nipple dischargeCHEST: Normal inspiratory effortABDOMEN: soft, non-tender and no massesPELVIC: external genitalia normal, normal Bartholin's glands, urethra,Bostonia's glands, no vulvar lesions, no cervical lesions, good vaginalsupport, physiologic discharge present, normal appearing perineal body andperianal regionBIMANUAL: uterus normal size, shape and consistency, no adnexal masses andnon-tenderRECTOVAGINAL: deferred.NEURO: alert and oriented x3,exam grossly non-focalEXTREMITIES: normalASSESSMENT/PLAN:1) Health maintenance:Pap done with HPV.Nutrition, exercise and routine health maintenance exams reviewed.Calcium/Vitamin D supplementation information provided.2) Contraception: vasectomy. Contraceptive options reviewed andinformation provided.3) STD screening: Declined STD check.4) Follow up one year or sooner as neededKendy Mcgrath APRN.NIGHT SHIFT hpv w/genotype on HPV HighRisk Negative for HPV DNA high risk types: Normal 12-18-2017 [place] Other 31,33,35,39,45,51,52,56,58,59,66,68 by Clinic PCR. [place] ([id number]) Comment: Result Comment: This test wa s developed and its performance characteristics determined by [facility]'s [facility] [place] ([facility]) .It has not been cleared or approved by the FDA. [facility] is regulated under [place] as qualified to perform high-complexity testing. This test is used f or clinical purposes. It should not be regarded as investigational or for re search. Performed By: #### HPVHRR ## ##[facility] [place], [place] [phone] HPV HighRisk Type 16 Negative for HPV DNA Normal 12-18-2017 [facility] high risk type 16 by [place] ([id number]) PCR. Comment: Performed By: #### HPVHRR ## ##[place] [address] [place], [place] [id number]- [phone] HPV HighRisk Type 18 Negative for HPV DNA Normal 12-18-2017 [facility] high risk type 18 by [place] ([id number]) PCR. Comment: Performed By: #### HPVHRR ## ##[facility] [address] [place], [place] [phone] cytology on 2017-12 CYTOLOGY ADDITIONAL Critically 12-18-2017 [place] PROCEDURES abnormal Clinic PRESENT---Abnorma l [place] Pap Test - Epithelial Cell Abnormality---Specimen originat ed from [place] ([id number]) ClinicSpecimen #: [id number] Physician: KENDY MCGRATH CNPSPECIMEN SUBMITTEDA: CERVICAL, SCREENING, FLUID FINAL DIAGNOSISA. CERVICAL, SCREEN ING, FLUIDSatisfactory for interpretation.Epithelial cell abnormality.Atypical squamous cells of undetermined sig nificance (ASC-US).This specimen has been analyzed by the ThinPrep Ayanna ging System, anautomated imaging and revi ew system, which assists the laboratory inevaluating cells on ThinPrep Pap tests. Following automated imaging,selected barragan from every slide are reviewed by a change over.Kj Mcbride M.D. (Electronic Signature) ADDITIONAL PROCEDURE(S)HUMAN PAPILLOMA VIRUS Date Ordered: 12/19/2017 Date Reported: 12/20/2017 Procedure Results and InterpretationNegative for HPV DNA high risk type 16 by PCR.Negative for HPV DNA hig h risk type 18 by PCR.Negative for HPV DNA high risk types: 31,33,35,39,45,51,52, 56,58,59,66,68by PCR.This test was developed and its performance characteristics determined [facility] ([facility]).It has not been cleared or approved by the FDA. [facility] is regulated under[place] as billy lified to perform high-complexity testing. Thi s test is used forclinical purposes. It should not be regarded as investigational or forresearch.CLINICAL DATA ROU GOPAL EXAM, HPV Testing: Yes, automatic HPV patients over 30Date of Last Men strual Period:12/01/2017STAINSA: CERVICAL, SCREE NICOLE, FLUID THIN PREP GYNPatient ID #: [id number] of Report: 12/24/2017Date of Procedu re: 12/18/2017Date of Receipt: 12/19/2017Submitted by: KENDY CLARK, CNPLocation: WOREFDiagnostic interpretation performed at [facility], [address] [place] [address].The Pap Smear is a screening test for cervical cancer. False n egativeresults occur with all screening tests, emphasizing the need forrescreening at recommended intervals, and clinical correlation. cnov on 2017-12-18 CNOV Office Visit Normal 12-18-2017 Giacomo and (WOOB) ------NAHOMY VARGAS ([id number]) 1980 FDat e Time Provider Department12/18/17 8:00 AM KENDY MCGRATH (NIGHT SHIFT) BARRETT Gallegos During your visit today, we recorded the following information about you: Blood pressure Weight ([id number]) Height Last Period 106/68 11 7 kg 1.664 m 12/01/17Amy BRANDEE Mcgrath 12/18/2017 8:36 AM Sushil Vargas is a 37 year old who presents for her annual gynecologicexam without complaints.Menses: cycles ev tom 28 days and 3 days of flow.Contraception: vasectomyHPV vaccine: NoLast Pap: 2013 normal HPV: negativeHistory of abnormal pap: Yes, LEEP 2007Last mammogram: neverSexually active: YesPat ient concerns for STD exposure: No.Time with current partner: 5 yearsPain with intercourse: NoPostcoital bleeding: NoExercise: not at current timeDiet: lean meats, vegetables and fruit - began this week. Had lost over 60pounds 2 years ago but has gained most of the weight back.Seat belt use: YesObstetric History T4 L4 SAB0 TAB0 Ectopic0 Multiple0 Live [id number] M EDICAL HISTORYDiagnosis Date- Migraine, unspecified, with intractable migraine, so stated, without mentionof status migrainosus Migraine- Papanicolaou smear of cervix with high grade squamous int raepithelial lesion(HGSIL) 2006- Unspecified asthma, with exacerbationPAST SURGICAL HI STORYProcedure Laterality Date- CERVIX UTERI CONIZA LP ELCTRO EXCI 05/23/2007 LEEP-Cervix for p ath and colpo descrepancy- COLPOSCOPY (VAGINOSCOPY) Colposcopy- REMOVAL OF TONSILS,<12 Y/O T onsillectomyFAMILY HISTORYProblem Relation Age of Onset- Diabetes Mother- Heart Mother- Hypert ension Mother- Kidney Disease Mother- Stroke Maternal Grandmother- Alcohol/Drug Maternal Grandf ather ALCOHOL- Cancer Maternal Grandfather lung- Asthma Paternal Grandfather- Heart Paternal Grandfather- Diabetes Paternal GrandfatherSOCIAL HISTORYSocial HistorySubstance Use Topics- Smoking status: Former Smoker Years: 8.00 Types: Cigarettes Quit date: 01/24/2010- Smokeless t obacco: Never Used- Alcohol use Yes Comment: RARELY BUT NOT WHILE REVIEW OF SYSTEMSAbd omen: No abdominal pain, nausea, vomiting, diarrhea, or constipation. Nobloating, early satiety, i ndigestion, or increased flatulence.Bladder: No dysuria, gross hematuria, urinary frequency , urinary urgency, orincontinence.Breast: No breast lumps, nipple d/c, overlying skin changes, redn ess or skinretraction. Bilateral breast tenderness this past week - was on vacation anddoing a l ot of lifting.Allergies and current medication updated:YesEXAM: BP 106/68 Ht 5' 5.5 (1.66m) Wt 258 lb (117.0kg) LMP 12/01/2017 BMI 42.27 kg/(m2).GENERAL: pleasant, female i n no apparent distressHEENT: Normocephalic, atraumatic, mucus membranes moist and no lesio nsNECK: Supple, full range of motion, no adenopathy and thyroid normalDERMATOLOGY: Normal, w ithout lesions, non-icteric and non-hirsuteBREAST: soft, non-tender, symmetric, no dominant mass, normal nipple-areolarcomplex, no lymphadenopathy and no nipple dischargeCHEST: Normal inspi ratory effortABDOMEN: soft, non-tender and no massesPELVIC: external genitalia normal, normal Bar tholin's glands, urethra, Bostonia'sglands, no vulvar lesions, no cervical lesions, good vagin al support,physiologic discharge present, normal appearing perineal body and perianalregionBIMAN UAL: uterus normal size, shape and consistency, no adnexal masses andnon-tenderRECTOVAGINAL: deferred.NEURO: alert and oriented x3,exam grossly non-focalEXTREMITIES: normal ASSESSMENT/PLAN:1) Health maintenance:Pap done with HPV.Nutrition, exercise and routine health maintenance exams reviewed.Calcium/Vitamin D supplementation information provided.2) Cont raception: vasectomy. Contraceptive options reviewed and informationprovided.3) STD s creening: Declined STD check.4) Follow up one year or sooner as neededKendy Mcgrath APRN.CNPA my BRANDEE Mcgrath 12/18/2017 8:25 AM SignedCalcium and Vitamin D Supplementation (from the [facility] of [facility]ary Supplements 2010)Calcium 600 mg twice daily and Vit D 1000 IU dailyCalcium is required by the body for blood vessel, muscle, hormone and nervefun ctioning. Most of the body's calcium is stored in the bones and teeth whereit supports structure a nd function. Bone is continuously broken down andreformed. When bone breakdown exceeds formation, especially in postmenopausalwomen, bone loss can increase the risk of osteoporosis and fractures. Inaddition to low calcium intake, women who smoke, have a family history ofosteoporosis, are thin, or , or who take certain medicationssuch as cancer chemotherapy, seizure mediations and steroids are at increasedrisk of osteoporosis.The calcium requirements in wome n change with age. The National Institutes ofHealth (NIH) recommends:1000mg elemental calcium for premenopausal women age 19-598732ah elemental calcium for postmenopausal women and all women over 50Milk, yogurt, and cheese are rich natural sources of calcium and are the majorfoo d contributors in the [place]. For example, 8oz of milk (whole, lowfator skim) contains abou t 300mg calcium, 8oz of yogurt contains 415mg. Nondairysources include salmon and sardines and vege tables, such as Peruvian cabbage,kale, and broccoli. Foods fortified with calcium include many fr uit juices,tofu and cereals. For more food calcium content information, visithttp://ods .od.nih.gov/factsheets/calcium.Calcium supplements come in several different forms. Remember th at therecommendations are for millgrams (mg) of elemental calcium which may be lessthan the to nikos weight of the supplement. The amount of elemental calcium isrequired to be printed on the label. Calcium carbonate is the least expensiveform. It must be taken on a full stomach to b e properly absorbed. Some patientsmay experience gas or constipation. Calcium phosphate and calciu m citrate maybe taken either with or without food and tend to have less side effects but aregen erally more expensive.Because of its ability to neutralize stomach acid, calcium carbonate is f oundin some fmnn-gyc-xgxgbiz antacid products, such as Tums? and Rolaids?.Depending on its st rength, each chewable pill or softchew provides 200 to 400mg of elemental calcium.The percen tage of calcium absorbed depends on the total amount of elementalcalcium consumed at one time. Absorption is highest in doses <500mg. So a womanwho takes 1,000mg/day of calcium from supplements should split the dose andtake 500mg at two separate times during the day.Too much calc ium can cause kidney stones, constipation, difficulty absorbingother nutrients and calcium buildu p in blood vessels. Women under 50 should notexceed 2500mg/day (2000mg/day for women over 5 0) of calcium from food andsupplements.Excessive alcohol and caffeine intake can inhibit absorptio n of calcium.Calcium can reduce the absorption of some medications if taken at the same timeof day (bisphosphonates, thyroid medication, Phenytoin and other seizuremedications, some ant ibiotics and iron supplements).Vitamin D promotes calcium absorption in the gut and maintains larry quate bloodlevels of calcium and phosphate for normal bone growth and bone remodeling.Vitamin D al so helps regulate cell growth as well as nerve, muscle and immunesystem function. Vitam in D is produced in the skin as a result of ultravioletsunlight rays and must be altered in the l iver and kidney to become its activeform.Recommended intake according to the National Institutes o f Health is 600International Units (IU) for girls and women ages 1-70 and 800 IU for womenover 70. Very few foods in nature contain vitamin D. The flesh of fatty fish(such as salmon, tuna, a nd mackerel) and fish liver oils are among the bestsources. Small amounts of vitamin D are fou nd in beef liver, cheese, mushroomsand egg yolks. Most people meet at least some of their vitamin D needs throughexposure to sunlight. Season, time of day, length of day, cloud cover, smog,skin melanin content, and sunscreen are among the factors that affect UVradiation exposure and vit isabel D synthesis. Despite the importance of the sunfor vitamin D synthesis, it is prudent to limit exposure of skin to sunlightand avoid tanning beds. UV radiation is a carcinogen responsible for most ofthe estimated 1.5 million skin cancers that occur annually in the [facility]Paoli Hospitals. Lifetim e cumulative UV damage to skin is also responsible for someage-associated dryness a nd other cosmetic changes.In supplements and fortified foods, vitamin D is available in two forms, D2(ergocalciferol) and D3 (cholecalciferol). The two are equivalent at normalsupplement doses. F or women who require high supplement doses because ofvitamin D deficiency, D3 may work bett er to raise blood levels. Somemedications can prevent proper absorption of Vitamin D. The se includelaxatives, corticosteroids like prednisone, the seizure drugs phenobarbital andpheny toin, the weight-loss drug orlistat ( Xenical? and AlliTM) and thecholesterol-lowering drug cholestyramine (Questran?, LoCholest?, andPrevalite?). Talk to your doctor about adjusting your recommended daily vitaminD dosage if you take these medications.You should not exceed 4000 mg of vitamin D supplementation daily unlessspecifically prescribed by your doctor.Referring Provider: Ronald RANGEL [[id number]]Allergies As of Date: 12/18/2017 Noted Allergy ReactionSEREVENT (SALMETEROL XINAFOATE) 03/09/2005 7 - SwellingDate Reviewed: 12/18/2017Reviewed by: Kendy DavidsonCriminology ProfessorAlex Suarez AssessedReason for Visit: Yearly Exam [187]Primary Visit Diagnosis:Encounter for gyne cological examination (general) (routine) without abnormal findings [Z01.419] Other Visit Diagno ses:Screening for cervical cancer [Z12.4] Encounter for screening for human papillomavirus (HPV) [ Z11.51]Order(s):PAP FLUID CERVICAL SCREENING [3337211] Order #: [id number] as o f 12/18/2017 Sig: MULTIVITAMIN TABLET Take 1 tablet by mouth once d*Problem List As Of Date Noted Resolved Supervision of other normal [Z34.80] INVALID FOR*04/25/2010 PAP S MEAR CERVIX W LGSIL [R87.612] INVALID FOR* PAP SMEAR CERVIX W HGSIL [R87.613] INVALID FOR* Migra ine NOS/not Intrcbl [G43.909] INVALID FOR* SUPRF HIGH RISK NEC [V23.89] [O09.899]INVALI D FOR* Abnormal results of thyroid function studies [R*INVALID FOR* Palpitations [R00.2] INVALID FOR* Other instructions from your clinician: Calcium and Vitamin D Supplementation (from the [facility] Office of Dietary Supplements 2010) Calcium 600 mg twice daily a nd Vit D 1000 IU daily Calcium is required by the body for blood vessel, muscle, hormone and nerve functioning. Most of the body's calcium is stored in the bones and teeth where it supports structure and function. Bone is continuously broken down and reformed. When bone breakdown exceeds formation, especially in postmenopausal women, bone loss can increase the risk of osteoporosis and fractures. In addition to low calcium intake, women who smoke, have a family history of osteoporos is, are thin, or , or who take certain medications such as cancer chemotherapy, seiz ure mediations and steroids are at increased risk of osteoporosis. The calcium requirements in wome n change with age. The National Institutes of Health (NIH) recommends: 1000mg elemental calcium for premenopausal women age 19-50 1200mg elemental calcium for postmenopausal women and all women over 50 Milk, yogurt, and cheese are rich natural sources of calcium and are the major fo od contributors in the [place]. For example, 8oz of milk (whole, lowfat or skim) contains abo ut 300mg calcium, 8oz of yogurt contains 415mg. Nondairy sources include salmon and sardines and vegetables, such as Peruvian cabbage, kale, and broccoli. Foods fortified with calcium inclu de many fruit juices, tofu and cereals. For more food calcium content information, visit http://od s.od.nih.gov/factsheets/calcium. Calcium supplements come in several different forms. Remember th at the recommendations are for millgrams (mg) of elemental calcium which may be less than the t otal weight of the supplement. The amount of elemental calcium is required to be printed on th e label. Calcium carbonate is the least expensive form. It must be taken on a full stomach to b e properly absorbed. Some patients may experience gas or constipation. Calcium phosphate and calciu m citrate may be taken either with or without food and tend to have less side effects but are ge nerally more expensive. Because of its ability to neutralize stomach acid, calcium carbonate is f ound in some wllg-bcr-eswrxkc antacid products, such as Tums? and Rolaids?. Depending on its s trength, each chewable pill or softchew provides 200 to 400 mg of elemental calcium. The perce ntage of calcium absorbed depends on the total amount of elemental calcium consumed at one time . Absorption is highest in doses <500mg. So a woman who takes 1,000mg/day of calcium from supplements should split the dose and take 500mg at two separate times during the day. Too much azalia cium can cause kidney stones, constipation, difficulty absorbing other nutrients and calcium buildu p in blood vessels. Women under 50 should not exceed 2500mg/day (2000mg/day for women over 5 0) of calcium from food and supplements. Excessive alcohol and caffeine intake can inhibit absorption of calcium. Calcium can reduce the absorption of some medications if taken at the same time of day (bisphosphonates, thyroid medication, Phenytoin and other seizure medications, s ome antibiotics and iron supplements). Vitamin D promotes calcium absorption in the gut and ma intains adequate blood levels of calcium and phosphate for normal bone growth and bone remodeling. Vitamin D also helps regulate cell growth as well as nerve, muscle and immune system function. Merissa min D is produced in the skin as a result of ultraviolet sunlight rays and must be altered in the l iver and kidney to become its active form. Recommended intake according to the National In [facility] of Health is 600 International Units (IU) for girls and women ages 1-70 and 800 IU for wom en over 70. Very few foods in nature contain vitamin D. The flesh of fatty fish (such as salmon, tuna, and mackerel) and fish liver oils are among the best sources. Small amounts of vitamin D a re found in beef liver, cheese, mushrooms and egg yolks. Most people meet at least some of their vitamin D needs through exposure to sunlight. Season, time of day, length of day, cloud cover, smog, skin melanin content, and sunscreen are among the factors that affect UV radiation exposure and vitamin D synthesis. Despite the importance of the sun for vitamin D synthesis, it is p rudent to limit exposure of skin to sunlight and avoid tanning beds. UV radiation is a carcinogen responsible for most of the estimated 1.5 million skin cancers that occur annually in the [place]. Lifetime cumulative UV damage to skin is also responsible for some age-associated dryness and other cosmetic changes. In supplements and fortified foods, vitamin D is available in tw o forms, D2 (ergocalciferol) and D3 (cholecalciferol). The two are equivalent at normal supplem ent doses. For women who require high supplement doses because of vitamin D deficiency, D3 may work better to raise blood levels. Some medications can prevent proper absorption of Vitamin D. These include laxatives, corticosteroids like prednisone, the seizure drugs phenobarbital and phenytoin, the weight-loss drug orlistat ( Xenical? and AlliTM) and the cholesterol-lowering drug cholestyramine (Questran?, LoCholest?, and Prevalite?). Talk to your doctor about adjusting your recommended daily vitamin D dosage if you take these medications. You should not exceed 4000 m g of vitamin D supplementation daily unless specifically prescribed by your doctor.Disposition: Ret urn in 1 year (on 12/18/2018) for Annual Exam.Follow-up and Disposition History RecordedEncnegro Isbell mber: [id number] Status:Closed by KENDY MCGRATH on 12/18/17 Encounters Date Type Reason Provider Location 12-18-2017 - Ambulatory KENDY (NIGHT SHIFT) PA [facility] 12-20-2017 ([id number]) Summary Purpose Family History No Family History Records FoundNo Family History Records Found Advance Directives No Advanced Directives Records FoundNo Advanced Directives Records Found Additional Source Comments FOR RECORDS PERTAINING TO PATIENTS WHO ARE OR HAVE BEEN ENROLLED IN A CHEMICAL DEPENDENCY/SUBSTANCE ABUSE PROGRAM, SOME INFORMATION MAY BE OMITTED. This clinical summary was aggregated from multiple sources. Caution should be exercised in using it in the provision of clinical care. This summary normalizes information from multiple sources, and as a consequence, information in this document may materially changethe coding, format and clinical context of patient data. In addition, data may be omittedin some cases. CLINICAL DECISIONS SHOULD BE BASED ON THE PRIMARY CLINICAL RECORDS. [facility] provides no warranty or guarantee of the accuracy or completeness of information in this document. UNRECOGNIZED CONTENT PROVIDED BELOW FOR UNRECOGNIZED SECTION INFORMATION SOURCE DATE CREATED AUTHOR AUTHOR'S ORGANIZATIO N 12/24/2017 [facility] DATE CREATED AUTHOR AUTHOR'S ORGANIZATIO N 11/18/2019 [facility] Found ation ([place])
== END ==
PROVIDERS: PCP Family Medicine; Referring Provider Family Medicine; Visit Provider Family Medicine
DX: Z00.00 Encounter for general adult medical examination without abnormal findings (principal)
CPT/HCPCS: 36415; 80048; 80061; 84443; 85027

== ENCOUNTER → 2019-11-26 08:06 | Outpatient (CLI) | payer BC, SELFPAY ==
[2019-08-18 13:19] VITALS: BMI 42.4
--- NOTE | 2019-11-26 08:12 | CT_ITS ---
STUDY: CT ABDOMEN AND PELVIS WITH CONTRAST REASON FOR EXAM: Female, 39 years old. GENERALIZED ABD PAIN X 6 MON, RADIATION DOSAGE (If Supplied By Facility): CTDIvol = ( 17.05 ) mGy, DLP = ( 1222.91 ) mGycm TECHNIQUE: Transaxial images were obtained from the dome of the diaphragm to the symphysis pubis with oral contrast. Oral and amp; IV Read i-CAT and amp; 100mL Isovue-300 was administered. Sagittal and coronal images were reconstructed. Individualized dose optimization techniques were used for this CT. COMPARISON: 01/03/2019 FINDINGS: The visualized lung bases are unremarkable. The visualized portions of the heart are within normal limits. There is decreased attenuation of the liver consistent with steatosis. Normal gallbladder and extrahepatic biliary system. Normal spleen. Normal pancreas. Normal bilateral adrenal glands. Normal right kidney. Normal left kidney. Normal visualized stomach. Normal small intestine. Normal colon. The appendix is visualized and appears normal. Appendix best seen on coronal recon images 66-86 Normal abdominal aorta. Normal inferior vena cava. Normal retroperitoneum. Normal urinary bladder. Normal-appearing uterus. Physiologic ovarian cysts noted. Normal abdominal wall. Normal osseous structures. CT/Abdomen/Pelvis WITH Contrast IMPRESSION: Diffuse fatty infiltration of the liver, no discrete lesion No CT evidence of an acute inflammatory process, normal appendix visualized Normal appearing uterus, physiologic ovarian cysts noted. No free intraperitoneal fluid, air, or suspicious adenopathy Electronically Signed: Gal Russell MD at 11:57 EDT , Service support ,
--- OUTSIDE RECORDS SUMMARY | 2020-04-19 15:10 | XMS RPT_ITS | CCD ---
:1980 External Reference #:[id number] Author Organization [employer] Care Team Providers Name Role Phone PA, (FRONT LINE LEADER) Unavailable Unavailable Allergies Reported Allergen Reaction(s) Severity Date of Onset Location salmeterol Translations: AOF Unknown 03-09-2005 - [facility] [ SALMETEROL XINAFOATE] [facility] Repository Problems Category Problem Name Status Date Location Unclassified Unknown / UNK(Unknown) Active 12-18-2017 - [facility] ([id number]) Results Result Name Value Range Unit Interpretation Flag Date Location xr tibia/fibula 2 views left on 2019-04-23 XR TIBIA/FIBULA 2 ORIGINAL Normal 04-23-2019 A [facility] VIEWS LEFT XR TIBIA/FIBULA 2 VIEWS LEFT [facility] ([place]) ([id number]) CLINICAL STATEMENT: injury. COMPARISON: None FINDINGS: No [...] XR SPINE THORACIC ORIGINAL Normal 04-23-2019 A [facility] 3 VIEWS XR SPINE THORACIC 3 VIEWS [facility] ([place]) ([id number]) CLINICAL STATEMENT: injury. COMPARISON: None FINDINGS: Evaluation [...] 2019-04-23 XR SPINE LUMBAR ORIGINAL Normal 04-23-2019 [facility] AP/LAT XR SPINE LUMBAR AP/LAT [facility] ([place]) ([id number]) CLINICAL STATEMENT: injury. COMPARISON: None FINDINGS: There [...] XR ANKLE MINIMUM 3 ORIGINAL Normal 04-23-2019 [facility] VIEWS LEFT XR ANKLE MINIMUM 3 VIEWS LEFT [facility] ([place]) ([id number]) CLINICAL STATEMENT: injury. COMPARISON: None FINDINGS: No [...] Harmon progress on 2017-12 PROGRESS HNO ID: [id number] Normal 12-24-2017 [facility] Author: Ada Melissa Psr ([id number]) Service: (none) Author Type: (none) Type: Progress Notes Filed: 12/24/2017 12:36 PM Note Text: pap logged. Ada Perezr cnco on 2017-12-24 CNCO Letter Aubree Lance's Ebony l 12-24-2017 [facility] [facility] ([id number]) [place], [place] [address]Tsfsc: Nahomy Vargas[address] [facility] [id number] #: [id number] Nahomy, This letter is to inform you [...] still importantthat you return for your yearly [employer] exams.We appreciate your confidence in choosing the [facility] for your medical care and we look forward to seeing youat your next appointment. Please feel free to call us if you have anyquestions regarding your test results at the phone number above.Sincerely,Kendy Mcgrath CNP progress on 2017-12 PROGRESS HNO ID: [id number]: Kendy (Dominique) Barrera pace 12-18-2017 [facility] GutieService: (none)Author Type: [facility] ([id number]) Nurse PractitionerType: Progress NotesFiled: 12/18/2017 8:36 AMNote [...] T4 L4 SAB0 TAB0 Ectopic0 Multiple0 Live [id number] MEDICAL HISTORYDiagnosis Date- Migraine, unspecified, with intractable [...] massesPELVIC: external genitalia normal, normal Bartholin's glands, urethra,[place]'s glands, no vulvar lesions, no cervical lesions, [...] one year or sooner as neededKendy Mcgrath APRN.FRONT LINE LEADER hpv w/genotype on HPV HighRisk Negative for HPV DNA high risk types: Normal 12-18-2017 [facility] Other 31,33,35,39,45,51,52,56,58,59,66,68 by Clinic PCR. [facility] ([id number]) Comment: Result Comment: This test wa s developed and its performance characteristics determined by [facility]'s Aravind [facility] [place] ([facility]) .It has not been cleared or approved by the FDA. [facility] is regulated under [place] as qualified to perform high-complexity testing. This test is used f or clinical purposes. It should not be regarded as investigational or for re search. Performed By: #### HPVHRR ## ##[facility] [place] [place], [place] [id number]- [phone] HPV HighRisk Type 16 Negative for HPV DNA Normal 12-18-2017 [facility] high risk type 16 by [facility] ([id number]) PCR. Comment: Performed By: #### HPVHRR ## ##[place] [id number] [place], [place] [id number]- [phone] HPV HighRisk Type 18 Negative for HPV DNA Normal 12-18-2017 [facility] high risk type 18 by [facility] ([id number]) PCR. Comment: Performed By: #### HPVHRR ## ##[facility] [address] [place], [place] [id number]- [phone] cytology on 2017-12 CYTOLOGY ADDITIONAL Critically 12-18-2017 [facility] PROCEDURES abnormal Clinic PRESENT---Abnorma l [facility] Pap Test - Epithelial Cell Abnormality---Specimen originat ed from [facility] ([id number]) ClinicSpecimen #: [id number] Physician: KENDY MCGRATH CNPSPECIMEN SUBMITTEDA: CERVICAL, SCREENING, FLUID FINAL DIAGNOSISA. CERVICAL, SCREEN ING, FLUIDSatisfactory for interpretation.Epithelial cell abnormality.Atypical squamous cells of undetermined sig nificance (ASC-US).This specimen has been analyzed by the ThinPrep Ayanna ging System, anautomated imaging and revi ew system, which assists the laboratory inevaluating cells on ThinPrep Pap tests. Following automated imaging,selected barragan from every slide are reviewed by a stem threshing machine operator.Kj Mbcride M.D. (Electronic Signature) ADDITIONAL PROCEDURE(S)HUMAN PAPILLOMA VIRUS Date Ordered: 12/19/2017 Date Reported: 12/20/2017 Procedure Results and InterpretationNegative for HPV DNA high risk type 16 by PCR.Negative for HPV DNA hig h risk type 18 by PCR.Negative for HPV DNA high risk types: 31,33,35,39,45,51,52, 56,58,59,66,68by PCR.This test was developed and its performance characteristics determined [facility] Aravind [facility] Path[facility] ([facility]).It has not been cleared or approved by the FDA. [facility] is regulated underCLIA as billy lified to perform high-complexity testing. Thi s test is used forclinical purposes. It should not be regarded as investigational or forresearch.CLINICAL DATA ROU GOPAL EXAM, HPV Testing: Yes, automatic HPV patients over 30Date of Last Men strual Period:12/01/2017STAINSA: CERVICAL, SCREE NICOLE, FLUID THIN PREP GYNPatient ID #: [id number] of Report: 12/24/2017Date of Procedu re: 12/18/2017Date of Receipt: 12/19/2017Submitted by: KENDY CLARK, CNPLocation: WOREFDiagnostic interpretation performed at [facility], [id number] [place] [address].The Pap Smear is a screening test for cervical cancer. False n egativeresults occur with all screening tests, emphasizing the need forrescreening at recommended intervals, and clinical correlation. cnov on 2017-12-18 CNOV Office Visit Normal 12-18-2017 Giacomo and (WOOB) ------NAHOMY VARGAS ([id number]) 1980 FDat e Time Provider Department12/18/17 8:00 AM KENDY MCGRATH (FRONT LINE LEADER) BARRETT Gallegos During your visit today, we recorded the following information about you: Blood pressure Weight ([id number]) Height Last Period 106/68 11 7 kg [...] T4 L4 SAB0 TAB0 Ectopic0 Multiple0 Live Lvtoaq7XIEK M EDICAL HISTORYDiagnosis Date- Migraine, unspecified, with [...] genitalia normal, normal Bar tholin's glands, urethra, [place]'sglands, no vulvar lesions, no cervical lesions, good [...] SignedCalcium and Vitamin D Supplementation (from the [facility] of [facility]ary Supplements 2010)Calcium 600 mg twice [...] recommends:1000mg elemental calcium for premenopausal women age [id number] elemental calcium for postmenopausal women and all women over 50Milk, yogurt, and cheese are rich natural sources of calcium and are the majorfoo d contributors in the [place]. For example, 8oz of milk (whole, lowfator skim) contains abou t 300mg calcium, 8oz of yogurt contains 415mg. Nondairysources include salmon and sardines and vege tables, such as Grenadian cabbage,kale, and broccoli. Foods fortified with calcium [...] acid, calcium carbonate is f oundin some jdvz-nuw-aasdxye antacid products, such as Tums? and Rolaids?.Depending [...] skin cancers that occur annually in the [facility]. Lifetim e cumulative UV damage to skin [...] 7 - SwellingDate Reviewed: 12/18/2017Reviewed by: Kendy DavidsonRaisin WasherAlex Suarez AssessedReason for Visit: Yearly Exam [187]Primary Visit Diagnosis:Encounter for gyne cological examination (general) (routine) without abnormal findings [Z01.419] Other Visit Diagno ses:Screening for cervical cancer [Z12.4] Encounter for screening for human papillomavirus (HPV) [ Z11.51]Order(s):PAP FLUID CERVICAL SCREENING [[id number]] Order #: [id number] as o f 12/18/2017 Sig: MULTIVITAMIN TABLET [...] Calcium and Vitamin D Supplementation (from the [facility] of [facility] Office of Dietary Supplements 2010) Calcium 600 [...] salmon and sardines and vegetables, such as Grenadian cabbage, kale, and broccoli. Foods fortified with [...] calcium carbonate is f ound in some wruo-bul-jaazaej antacid products, such as Tums? and Rolaids?. [...] according to the National In [facility] of Health is 600 International Units (IU) [...] Exam.Follow-up and Disposition History RecordedEncnegro Isbell mber: [id number] Status:Closed by KENDY MCGRATH on 12/18/17 Encounters Date Type Reason Provider Location 12-18-2017 - Ambulatory KENDY (FRONT LINE LEADER) PA [facility] 12-20-2017 ([id number]) Summary Purpose Family History No Family History [...] BE BASED ON THE PRIMARY CLINICAL RECORDS. [facility] provides no warranty or guarantee of the accuracy or completeness of information in this document. UNRECOGNIZED CONTENT PROVIDED BELOW FOR UNRECOGNIZED SECTION INFORMATION SOURCE DATE CREATED AUTHOR AUTHOR'S ORGANIZATIO N 12/24/2017 [facility] DATE CREATED AUTHOR AUTHOR'S ORGANIZATIO N 11/18/2019 [facility] Found ation ([place])
== END ==
PROVIDERS: PCP Family Medicine; Referring Provider Family Medicine; Visit Provider Family Medicine
DX: R10.9 Unspecified abdominal pain (principal)
CPT/HCPCS: 74177; Q9967

== ENCOUNTER → 2020-01-07 08:56 | Outpatient (CLI) | payer BC, SELFPAY ==
[2019-08-18 13:19] VITALS: BMI 42.4
--- NOTE | 2020-01-07 08:57 | BI_ITS ---
MAMMOGRAPHY - BILATERAL DIAGNOSTIC REASON FOR EXAM: Female, 39 years old. Follow-up for right breast biopsy. PERTINENT HISTORY: Non-contributory. TECHNIQUE: Digital bilateral breast chris (3D mammographic acquisition) in the CC and MLO projections. 2-D mediolateral oblique (MLO) and craniocaudad (CC) views of both breasts were obtained. CAD: Full Field Digital Mammography with Computer Added Detection was performed. COMPARISON: Comparison is made with prior examination dated January 12, 2019. FINDINGS: Breast Composition: The breasts are heterogeneously dense, which may obscure small masses. There are no dominant masses or suspicious calcifications. A tissue clip marker from prior biopsy is seen within the nodular density in the deep central lateral portion of the right breast. The nodule patency measures 8 mm in greatest dimension. No other significant abnormalities are identified. BI/DIAG MAMM W/CAD, BILAT IMPRESSION: Status post biopsy of the nodular density in the right breast as described.. One year follow-up recommended. (A) ASSESSMENT CATEGORY: BIRADS Category 2: Benign. A letter regarding these results will be sent to the patient by the facility within 30 days. Approximately 10% of breast cancers are not detected by mammography. A normal mammogram should not delay biopsy of a clinically suspicious abnormality. Electronically Signed: Philip Willis, at 9:51 EDT , Service support ,
== END ==
PROVIDERS: PCP Family Medicine; Referring Provider Surgery; Visit Provider Surgery
DX: R92.2 Inconclusive mammogram (principal); N63.0 Unspecified lump in unspecified breast
CPT/HCPCS: 77062; 77066; G0279

== ENCOUNTER → 2020-10-22 08:14 | Outpatient (CLI) | payer BC, SELFPAY ==
[2020-09-01 11:05] VITALS: BMI 46.1
[2020-10-22 08:37] LABS: Absolute Lymphocyte Count 1.99 X10^3/uL (0.83-4.51); Absolute Neutrophil Count 3.8 X10^3/uL (2.0-7.7); Basophil# 0.03 X10^3/uL; Basophil% 0.5 % (0-1); Eosinophil# 0.13 X10^3/uL; Hematocrit 42.3 % (37-47); Hemoglobin 13.4 g/dL (12.0-15.0); Lymphocyte # 1.99 X10^3/ul (0.83-4.51); Lymphocyte % 31.3 % (19-41); Mean Corp Hgb Conc 31.7 g/dL (32-36); Mean Corpuscular Hgb 28.9 pg (27.0-32.0); Mean Corpuscular Volume 91.4 fL (81-99); Mean Platelet Vol. 10.4 fl (6.2-12.0); Monocyte# 0.37 X10^3/uL; Monocyte% 5.8 % (0-10); NRBC Flagged by Analyzer 0 % (0-5); Neutrophil # 3.82 X10^3/uL (2.7-7.7); Neutrophil % 60.1 % (47-70); Platelet Count 241 K/mm3 (150-450); RBC Distribution Width CV 12.7 % (11.6-14.6); RBC Distribution Width SD 42.3 fl (35.1-43.9); Red Blood Count 4.63 M/mm3 (4.2-5.4); White Blood Count 6.4 K/mm3 (4.4-11.0)
[2020-10-22 08:54] LABS: Hemoglobin A1c 5.6 % (3.8-5.6)
[2020-10-22 09:21] LABS: ALB/GLOB Ratio 0.8 RATIO (0.9-2.4); AST(SGOT) 14 U/L (15-37); Alanine Aminotransfer ALT/SGPT 27 U/L (13-56); Albumin, Serum 3.4 g/dL (3.2-5.0); Alkaline Phosphatase 68 U/L (45-117); Anion Gap 1 (5-15); BUN 7 mg/dL (7-18); BUN/Creat Ratio 8.2 RATIO (10-20); Calcium,Total 8.4 mg/dL (8.5-10.1); Chloride 107 mmol/L (98-107); Cholesterol 204 mg/dL (200); Creatinine, Serum 0.85 mg/dL (0.55-1.02); EST Glomerular Filtration Rate 79 mL/min (>60); Est Glom Filt Rate - Afr Amer 95 mL/min (>60); Glucose 109 mg/dL (74-106); High Density Lipoprotein 52 mg/dL; Potassium 4.3 mmol/L (3.5-5.1); Protein, Total 7.4 g/dL (6.4-8.2); Sodium Level 137 mmol/L (136-145); Thyroid Stim Hormone (TSH) 0.47 uIU/mL (0.358-3.74); Triglycerides 117 mg/dL; Very Low Density Lipoprotein 23 mg/dL (5-40)
== END ==
PROVIDERS: PCP Family Medicine; Referring Provider Nurse Practitioner Family; Visit Provider Nurse Practitioner Family
DX: R53.82 Chronic fatigue, unspecified (principal); M62.81 Muscle weakness (generalized); E66.9 Obesity, unspecified
CPT/HCPCS: 36415; 80053; 80061; 83036; 84443; 85025; 86141

== ENCOUNTER → 2021-01-30 15:53 | Outpatient (CLI) | payer BC, SELFPAY ==
[2020-09-01 11:05] VITALS: BMI 46.1
--- NOTE | 2021-01-30 15:54 | BI_ITS ---
MAMMOGRAPHY - BILATERAL SCREENING REASON FOR EXAM: Female, 40 years old. Routine annual screening examination. PERTINENT HISTORY: Non-contributory. TECHNIQUE: Digital bilateral breast fabian (3D mammographic acquisition) in the CC and MLO projections. 2-D mediolateral oblique (MLO) and craniocaudad (CC) views of both breasts were obtained. CAD: Full Field Digital Mammography with Computer Added Detection was performed. COMPARISON: Comparison is made with prior study dated 01/07/2020 and 01/12/2019. FINDINGS: Breast Composition: The breasts are heterogeneously dense, which may obscure small masses. There are no dominant masses or suspicious calcifications. A tissue clip marker is once again seen in the deep central lateral portion of the right breast within a tiny nodular density. No other significant abnormalities are identified. There has been no significant change since the prior study. BI/SCRN MAMM (CAD)W/FABIAN BILAT IMPRESSION: Stable bilateral screening mammogram. Yearly follow-up mammogram recommended. (A) ASSESSMENT CATEGORY: BIRADS Category 2: Benign. A letter regarding these results will be sent to the patient by the facility within 30 days. Approximately 10% of breast cancers are not detected by mammography. A normal mammogram should not delay biopsy of a clinically suspicious abnormality. [id number] Electronically Signed: Philip Willis MD at 8:38 EDT , Service support ,
== END ==
PROVIDERS: PCP Family Medicine; Visit Provider Nurse Practitioner Women's Health
DX: Z12.31 Encounter for screening mammogram for malignant neoplasm of breast (principal)
CPT/HCPCS: 77063; 77067

== ENCOUNTER 2021-08-07 14:51 | Outpatient (CLI) | payer BC, SELFPAY ==
--- NOTE | 2021-08-07 14:57 | MRI_ITS ---
EXAM: MR RIGHT LOWER EXTREMITY WITHOUT INTRAVENOUS CONTRAST, FOOT CLINICAL INDICATION: BENIGN NEOPLASM AREA MARKED WITH MARKER BEAD TECHNIQUE: Multiplanar and multisequence MR images of the right foot without intravenous contrast. This report was created using [employer] report [employer] technology. COMPARISON: None. FINDINGS: LIGAMENTS: MEDIAL COLLATERAL: Unremarkable. Intact. LATERAL COLLATERAL: Unremarkable. Intact. LISFRANC: Unremarkable. Intact. TENDONS: FLEXOR: Unremarkable. Intact. EXTENSOR: Unremarkable. Intact. PERONEAL: Unremarkable. Intact. TIBIALIS ANTERIOR: Unremarkable. Intact. TIBIALIS POSTERIOR: Unremarkable. Intact. MUSCLES: Unremarkable. No edema or myositis. FLUID: Unremarkable. No joint effusion. PLANTAR FASCIA: Unremarkable. Intact. BONES/JOINTS: Unremarkable. Normal forefoot alignment. No fracture. No bone marrow edema. No joint effusion. OTHER SOFT TISSUES: Well-circumscribed 14 mm isointense T1 area in the plantar aspect of the foot at the level of the marker. This demonstrates fat suppression. This is consistent for a benign lipoma. MRI/Lower Ext/No Jt/w/o IMPRESSION: There is a fatty mass in the area of interest. This is consistent for a soft tissue lipoma. No follow up required. Electronically Signed: Seth Fitch MD at 16:51 EST Reading Location ID and State: [facility] / [place] , Service support ,
== END 2021-08-07 23:59 | disposition short-term general hospital (02) ==
PROVIDERS: PCP Family Medicine; Visit Provider Podiatrist
DX: D21.21 Benign neoplasm of connective and other soft tissue of right lower limb, including hip (principal)
CPT/HCPCS: 73718

== ENCOUNTER 2022-01-26 18:28 | Emergency (ER) | payer BC, SELFPAY ==
[2022-01-26 18:29] VITALS: BP 143/90; PULSE 89; RESP 14; TEMP 36.2; O2SAT 100; BMI 37.7
--- NOTE | 2022-01-26 18:53 | EKG12_ITS ---
Test Reason : DYSRHYTHMIA Blood Pressure : / mmHG Vent. Rate : 076 BPM Atrial Rate : 076 BPM P-R Int : 154 ms QRS Dur : 094 ms QT Int : 398 ms P-R-T Axes : 054 007 038 degrees QTc Int : 447 ms Normal sinus rhythm Normal ECG Confirmed by YANETH ESTES, MEAGHAN ([id number]), market editor PETRA DE LA TORRE ([id number]) on 01/30/2022 9:22:25 AM Referred By: CHENTE Confirmed By:MEAGHAN WOLFE MD
[2022-01-26 19:07] LABS: Absolute Lymphocyte Count 2.26 X10^3/uL (0.83-4.51); Absolute Neutrophil Count 4.5 X10^3/uL (2.0-7.7); Basophil# 0.04 X10^3/uL; Basophil% 0.5 % (0-1); Eosinophil# 0.09 X10^3/uL; Eosinophils% 1.2 % (0-5); Hematocrit 38.9 % (37-47); Hemoglobin 13.3 g/dL (12.0-15.0); Lymphocyte # 2.26 X10^3/ul (0.83-4.51); Lymphocyte % 30.4 % (19-41); Mean Corp Hgb Conc 34.2 g/dL (32-36); Mean Corpuscular Hgb 31.5 pg (27.0-32.0); Mean Corpuscular Volume 92.2 fL (81-99); Mean Platelet Vol. 8.9 fl (6.2-12.0); Monocyte# 0.49 X10^3/uL; Monocyte% 6.6 % (0-10); NRBC Flagged by Analyzer 0 % (0-5); Neutrophil # 4.54 X10^3/uL (2.7-7.7); Platelet Count 245 K/mm3 (150-450); RBC Distribution Width CV 12.4 % (11.6-14.6); RBC Distribution Width SD 42.5 fl (35.1-43.9); Red Blood Count 4.22 M/mm3 (4.2-5.4); White Blood Count 7.4 K/mm3 (4.4-11.0)
--- NOTE | 2022-01-26 19:15 | RAD_ITS ---
EXAM: XR CHEST, 2 VIEWS CLINICAL INDICATION: palpitations TECHNIQUE: Frontal and lateral views of the chest. This report was created using [employer] report generation technology. COMPARISON: 02/24/2017 FINDINGS: LUNGS AND PLEURAL SPACES: Unremarkable. No consolidation or edema. No pneumothorax. No effusion. HEART: Unremarkable. Cardiac silhouette not enlarged. MEDIASTINUM: Central airways and mediastinal contour are unremarkable. BONES/JOINTS: Unremarkable. SOFT TISSUES: Unremarkable. RAD/Chest PA and Lateral IMPRESSION: No radiographic evidence of acute cardiopulmonary disease. Electronically Signed: Sandro Chavez MD at 19:55 EDT ,
[2022-01-26 19:36] LABS: Anion Gap 4 (5-15); BUN 12 mg/dL (7-18); BUN/Creat Ratio 15.2 RATIO (10-20); Calcium,Total 8.8 mg/dL (8.5-10.1); Chloride 109 mmol/L (98-107); Creatinine, Serum 0.79 mg/dL (0.55-1.02); EST Glomerular Filtration Rate 86 mL/min (>60); Est Glom Filt Rate - Afr Amer 104 mL/min (>60); Estimated Creatinine Clearance 85.18 ml/min; Glucose 99 mg/dL (74-106); Magnesium 2.3 mg/dL (1.6-2.6); Sodium Level 139 mmol/L (136-145); Troponin-I HS < 3 pg/mL (3.0-54.0)
--- NOTE | 2022-01-26 20:25 | EDS_ITS ---
HPI History of Present Illness Chief Complaint: Palpitations Informant: patient Narrative Narrative: Patient is a 41-year-old female who denies any past medical history presenting with palpitations. She has been going on for the past 3 months. She does note she is had some increased stress lately as her mother 2 weeks ago. She denies any associated chest pain. She initially went to urgent care and was told she is to come to the emergency room instead. She states she feels these episodes throughout the day. Sometimes she feels up in her face and her head. She denies any shortness of breath or difficulty breathing. She has a swelling of her legs. She denies any history of DVT or PE. Patient notes she is lost about 100 pounds for weight loss supplements over the past year but is not continuously taking them. Denies any fever or chills. No other complaints at this time. PFSH PFSH Medical History Exercise-induced asthma GERD (gastroesophageal reflux disease) Hepatic hemangioma Home Medications albuterol sulfate 90 mcg/actuation aerosol inhaler 1 - 2 puff inhalation Q6H PRN PRN Asthma 02/04/19 [History Last Taken Unknown] ibuprofen 600 mg tablet 400 mg PO Q6H PRN PRN Pain 02/04/19 [History Last Taken Unknown] hcg miracle skinny drops 1 bottle PO 10/17/21 [History Last Taken Unknown] Allergy/AdvReac Type Severity Reaction Status Date / Time bupropion Allergy Intermediate tongue Verified 01/26/22 18:29 [From Wellbutrin SR] swelling escitalopram [From Lexapro] Allergy Intermediate tongue Verified 01/26/22 18:29 swelling salmeterol xinafoate Allergy Swelling Verified 01/26/22 18:29 [From Serevent] Family History Mother Diabetes Heart disease Kidney disease Myocardial infarction CVA (cerebral vascular accident) Father Cancer appendix Surgical History Hx of cholecystectomy Social History Smoking Status: Never smoker alcohol intake: never substance use type: does not use caffeine: Yes what type of physical activity do you participate in: walking seatbelt use: always do you feel safe at home: Yes 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 ROS ROS ED Constitutional Constitutional ED: Denies chills or fever(s) Eyes Eyes: Denies change in vision ENT ENT ED: Denies sore throat Cardiovascular Cardiovascular: Reports as per HPI and palpitations; Denies chest pain Respiratory/Chest Respiratory/Chest: Denies cough, dyspnea or dyspnea on exertion Gastrointestinal Gastrointestinal: Denies nausea or vomiting Genitourinary Genitourinary ED: Denies dysuria Musculoskeletal Musculoskeletal: Denies arthralgias or myalgias Integumentary Denies rash Neurologic Neurologic: Denies headache(s) or paresthesias EXAM Physical Exam Const Vital Signs: 01/26/22 18:29 Temperature 97.2 F L Temperature Source Temporal Pulse Rate 89 Respiratory Rate 14 Blood Pressure 143/90 H Blood Pressure Mean 107 Pulse Ox 100 Oxygen Delivery Method Room Air Positive well nourished and well developed General Appearance ED: well developed and NAD HEENT Reports moist mucous membranes normocephalic and atraumatic Eyes PERRL and EOMs intact bilaterally Neck supple and no JVD Chest Wall inspection of chest normal and palpation of chest normal Resp normal respiratory effort and clear to auscultation bilaterally Cardio regular rate, regular rhythm and no murmurs GI normal to inspection, nondistended, normoactive bowel sounds and soft to palpation Extremity normal to inspection General Extremety ED: Negative for edema or pulses abnormal General Extremity: Negative for edema or pulses abnormal Neuro oriented x3 Neuro Narrative: No focal deficits appreciated Motor Exam: Negative for general weakness Psych mental status grossly normal Skin no rashes or lesions noted and no wounds MDM MDM MDM Narrative Medical decision making narrative: Evaluated for intermittent episodes of palpitations of incurred over the past 3 months. She peers nontoxic in no acute distress. Her vital signs are normal. She is PE RC negative I do not suspect a PE as a cause of her symptoms. High since he troponin is normal. EKG does not show any arrhythmia or acute EKG changes. BMP, CBC and TSH are all unremarkable. Patient does have some intermittent PVCs that correspond with her symptoms while in the emergency room. I suspect this is the cause of her palpitations however she will be set up with 48-hour Holter monitor after discussion with cardiology, Dr. Baker. At this time I do feel like patient is safe for outpatient follow-up. She is given return precautions. She verbalizes agreement understand with this plan. Lab Data Attestation: I reviewed the patient's lab results. Labs: Laboratory Results - last 24 hr 01/26/22 01/26/22 19:00 19:00 WBC 7.4 RBC 4.22 Hgb 13.3 Hct 38.9 MCV 92.2 MCH 31.5 MCHC 34.2 RDW Std Deviation 42.5 RDW Coeff of Lima 12.4 Plt Count 245 MPV 8.9 Immature Gran % (Auto) 0.300 Neut % (Auto) 61.0 Lymph % (Auto) 30.4 Zapata % (Auto) 6.6 Eos % (Auto) 1.2 Baso % (Auto) 0.5 Absolute Neuts (auto) 4.5 Absolute Lymphs (auto) 2.26 Nucleated RBC % 0 Sodium 139 Potassium 4.0 Chloride 109 H Carbon Dioxide 26.0 Anion Gap 4 L BUN 12 Creatinine 0.79 Estim Creat Clear Calc 85.18 Est GFR (MDRD) Af Amer 104 Est GFR (MDRD) Non-Af 86 BUN/Creatinine Ratio 15.2 Glucose 99 Calcium 8.8 Magnesium 2.3 Troponin I High Sens < 3 L TSH 0.80 Radiography Chest X-Ray - ED: 1 View, Read by ED Physician, Read by Radiologist and No Acute Disease Diagnostic Testing: Clinical Impression(s) from Imaging Studies Chest X-Ray 01/26/22 19:15 IMPRESSION: No radiographic evidence of acute cardiopulmonary disease. Electronically Signed: Sandro Chavez MD at 19:55 EDT , Rhythm Strip Rhythm Strip: Sinus Rhythm Rate: 82 Ectopy: PVC(s) EKG Initial EKG: Attestation: I personally reviewed and interpreted this EKG as follows: Interpretation: Sinus Rhythm Comments: Normal sinus rhythm at a rate of 76 Normal axis Normal intervals Normal ST segments Discharge Plan Triage Chief Complaint: Palpitations ED Provider: Saranya Fang Dx/Rx/DC Orders Clinical Impression: Palpitation, Symptomatic PVCs Instructions: PVCs, ED Palpitations Prescriptions: No Action hcg miracle skinny drops 1 bottle PO ibuprofen 600 MG tablet 400 mg PO Q6H PRN PRN (Reason: Pain) albuterol sulfate 1 INHALER inhaler 1 - 2 puff inhalation Q6H PRN PRN (Reason: Asthma) Primary Care Provider: Kervin Burt Referrals: Kervin Burt MD [Primary Care Provider] - Disposition Disposition: Home, Self Care
[2022-01-26 21:19] VITALS: BP 136/60; PULSE 89; RESP 18; O2SAT 98
== END 2022-01-26 21:20 | disposition home or self-care (01) ==
PROVIDERS: Emergency Provider Emergency Medicine; PCP Family Medicine; Visit Provider Emergency Medicine
DX: R00.2 Palpitations (principal); I49.3 Ventricular premature depolarization; K21.9 Gastro-esophageal reflux disease without esophagitis; J45.990 Exercise induced bronchospasm
CPT/HCPCS: 71046; 80048; 83735; 84443; 84484; 85025; 93005; 99283

== ENCOUNTER → 2022-01-26 | Outpatient (CLI) | payer BC, SELFPAY | END | disposition home or self-care (01) | PROVIDERS: PCP Family Medicine; Visit Provider Emergency Medicine | DX: R00.2 Palpitations (principal) | CPT/HCPCS: 93225; 93226 ==

== ENCOUNTER → 2022-01-31 | Outpatient (CLI) | payer BC, SELFPAY ==
--- NOTE | 2022-01-31 15:43 | BI_ITS ---
MAMMOGRAPHY - BILATERAL SCREENING REASON FOR EXAM: Female, 41 years old. Routine annual screening examination. PERTINENT HISTORY: Non-contributory. TECHNIQUE: Digital bilateral breast fabian (3D mammographic acquisition) in the CC and MLO projections. 2-D mediolateral oblique (MLO) and craniocaudad (CC) views of both breasts were obtained. CAD: Full Field Digital Mammography with Computer Added Detection was performed. COMPARISON: Comparison is made with prior study dated 01/30/2021 and 01/07/2020. FINDINGS: Breast Composition: The breasts are heterogeneously dense, which may obscure small masses. There are no dominant masses or suspicious calcifications. A tissue clip marker is once again seen in the central slightly lateral aspect of the right breast. No other significant abnormalities are identified. There has been no significant change since the prior study. BI/SCRN MAMM (CAD)W/FABIAN BILAT IMPRESSION: Stable bilateral screening mammogram. Yearly follow-up mammogram recommended. (A) ASSESSMENT CATEGORY: BIRADS Category 2: Benign. A letter regarding these results will be sent to the patient by the facility within 30 days. Approximately 10% of breast cancers are not detected by mammography. A normal mammogram should not delay biopsy of a clinically suspicious abnormality. [id number] Electronically Signed: Philip Willis MD at 8:14 EDT ,
== END | disposition home or self-care (01) ==
LOC: OPBI 15:42
PROVIDERS: PCP Family Medicine; Visit Provider Nurse Practitioner Women's Health
DX: Z12.31 Encounter for screening mammogram for malignant neoplasm of breast (principal)
CPT/HCPCS: 77063; 77067

== ENCOUNTER → 2022-02-23 | Outpatient (CLI) | payer BC, SELFPAY ==
--- NOTE | 2022-02-23 15:00 | ECHOD_ITS ---
Reason For Study: palpitations Procedure This was a 2D Doppler, Color Flow transthoracic echocardiogram. Exam performed in department. Left Ventricle Normal LV size. Left ventricular systolic function is normal. The estimated ejection fraction is 60 %. No evidence for diastolic dysfunction. No regional wall motion abnormalities noted. Right Ventricle Normal RV size. Normal systolic function. Atria Normal left atrium. Normal right atrium. No doppler evidence for ASD. Mitral Valve There is no mitral annular calcification. Normal mitral valve. Mild (1+) mitral valve insufficiency. Tricuspid Valve Normal tricuspid valve. Trivial tricuspid valve insufficiency. Unable to estimate RV systolic pressure due to insufficient tricuspid regurgitant envelope. Aortic Valve Trisinus/trileaflet aortic valve. Normal aortic valve. Pulmonic Valve Normal pulmonic valve. Great Vessels Normal sized aortic root. Pericardium/Pleural No pericardial effusion. MMode/2D Measurements & Calculations LVIDd: 5.5 cm IVSd: 0.60 cm Ao root diam: 2.9 cm LVIDs: 3.6 cm LVPWd: 0.79 cm RVDd: 3.3 cm FS: 35.3 % LAV(MOD-sp2): 83.1 ml LVAd ap4: 18.9 cm2 SV(MOD-sp4): 19.7 ml LVLd ap4: 6.3 cm EDV(MOD-sp4): 46.8 ml EDV(sp4-el): 48.8 ml LVAs ap4: 14.7 cm2 LVLs ap4: 6.7 cm ESV(MOD-sp4): 27.1 ml ESV(sp4-el): 27.4 ml EF(MOD-sp4): 42.2 % EF(sp4-el): 43.8 % SV(sp4-el): 21.4 ml LA A4 area: 11.4 cm2 LA dimension(2D): 4.2 cm RA A4 area: 12.3 cm2 Time Measurements MV dec time: 0.23 sec Doppler Measurements & Calculations MV E max az: 79.9 cm/sec Lat Peak E' Az: 15.3 cm/sec Med Peak E' Az: 10.3 cm/sec MV A max az: 58.2 cm/sec E/E' lat: 5.2 E/E' med: 7.8 MV E/A: 1.4 MV V2 max: 87.5 cm/sec Ao V2 max: 151.3 cm/sec MV max P.1 mmHg MV dec slope: 352.7 cm/sec2 Ao max P.2 mmHg MV V2 mean: 54.9 cm/sec Ao V2 mean: 103.5 cm/sec MV mean P.4 mmHg Ao mean P.9 mmHg MV V2 VTI: 25.5 cm Ao V2 VTI: 33.1 cm LV V1 max: 103.4 cm/sec PA V2 max: 98.7 cm/sec LV V1 max P.3 mmHg LV V1 mean P.5 mmHg LV V1 mean: 75.6 cm/sec LV V1 VTI: 22.8 cm ECHO/Echo Complete Interpretation Summary Left ventricular systolic function is normal. The estimated ejection fraction is 60 %. Mild (1+) mitral valve insufficiency. Trivial tricuspid valve insufficiency. Unable to estimate RV systolic pressure due to insufficient tricuspid regurgita nt envelope. No evidence for diastolic dysfunction. Ordering Physician: Divya Bardales Referring Physician: Divya Bardales Performed By: Claritza Hernández RCS
== END | disposition home or self-care (01) ==
LOC: CVS 14:58
PROVIDERS: PCP Family Medicine; Referring Provider Nurse Practitioner Family; Visit Provider Nurse Practitioner Family
DX: R00.2 Palpitations (principal)
CPT/HCPCS: 93306

== ENCOUNTER → 2022-11-07 | Outpatient (CLI) | payer BC, SELFPAY ==
--- NOTE | 2022-11-07 14:15 | EMB_PTH ---
PATIENT: NAHOMY VARGAS LOC: [facility] U#:[id number] AGE/SX: 42/F ROOM: RE11/07/[address]: ELA Villa : 1980 BED: DIS: 11/07/2022 SPEC #: [id number] RECD: 11/07/22 17:13 STATUS: TIFFANIE RIAN #: [id number] PATY: 11/07/22 14:[address]: Gloria Cisneros NP DEPT: SURGICAL PATHOLOGY RECD BY: Cayden Bender ENTERED: 11/08/22 08:05 SP TYPE: ENDOM BX/C KHANH DR: Dr. Yossi Burt MD Tissues: Endometrium, NOS Procedures: Surgery Specimen Level IV HEADER OPERATION: Endometrial biopsy PRE-OP DIAGNOSIS: Abnormal uterine bleeding TISSUE SUBMITTED: Endometrial tissue MICROSCOPIC DIAGNOSIS Endometrial biopsy: Secretory endometrium. SJ:abraham 11/09/2022 MICROSCOPIC DESCRIPTION Slides are reviewed. GROSS DESCRIPTION Received is one container labeled with the patient's name and not further designated. The specimen consists of multiple irregular and elongated fragments of pink-mabry soft tissue that in aggregate measure 2.2 x 2.0 x 0.2 cm. The specimen is totally submitted in one cassette. / AM:abraham 11/08/2022 TC:4 CPT: 34182
== END | disposition home or self-care (01) ==
PROVIDERS: PCP Family Medicine; Visit Provider Nurse Practitioner Women's Health
DX: N93.9 Abnormal uterine and vaginal bleeding, unspecified (principal)
CPT/HCPCS: 88305

== ENCOUNTER → 2022-11-14 | Outpatient (CLI) | payer BC, SELFPAY ==
--- NOTE | 2022-11-14 15:06 | US_ITS ---
STUDY: ULTRASOUND OF THE FEMALE PELVIS - COMPLETE REASON FOR EXAM: Female, 42 years old. menorrhagia TECHNIQUE: Endovaginal. Transvaginal US was obtained to better visualized the ovaries. COMPARISON: ct 5..20. FINDINGS: The uterus is anteverted and is in a midline position. The uterus measures 8.4x5.2 cm. Normal uterine cervix. The endometrium measures 10 mm in thickness, and is hyperechoic. There is no demonstrated endometrial mass. There is no demonstrated myometrial mass. I.U.D. - The patient does not have an I.U.D. The right ovary is visualized. The right ovary measures 2.5x2.3 cm. There is no right ovarian cyst or ovarian mass. There is no visualized right adnexal mass or complex lesion. There is normal arterial and normal venous vascularity. There is nonvisualization of the left ovary due to overlying bowel gas. There is no fluid in the cul-de-sac. Urinary bladder volume is (in cc) 532. US/Pelvic (Non ) IMPRESSION: There are no acute findings. Electronically Signed: Seth Fitch MD at 14:37 EDT ,
--- NOTE | 2022-11-14 15:06 | US_ITS ---
STUDY: ULTRASOUND OF THE FEMALE PELVIS - COMPLETE REASON FOR EXAM: Female, 42 years old. menorrhagia TECHNIQUE: Endovaginal. Transvaginal US was obtained to better visualized the ovaries. COMPARISON: ct 5..20. FINDINGS: The uterus is anteverted and is in a midline position. The uterus measures 8.4x5.2 cm. Normal uterine cervix. The endometrium measures 10 mm in thickness, and is hyperechoic. There is no demonstrated endometrial mass. There is no demonstrated myometrial mass. I.U.D. - The patient does not have an I.U.D. The right ovary is visualized. The right ovary measures 2.5x2.3 cm. There is no right ovarian cyst or ovarian mass. There is no visualized right adnexal mass or complex lesion. There is normal arterial and normal venous vascularity. There is nonvisualization of the left ovary due to overlying bowel gas. There is no fluid in the cul-de-sac. Urinary bladder volume is (in cc) 532. US/Transvaginal Non- IMPRESSION: There are no acute findings. Electronically Signed: Seth Fitch MD at 14:37 EDT ,
== END | disposition home or self-care (01) ==
PROVIDERS: PCP Family Medicine; Referring Provider Nurse Practitioner Women's Health; Visit Provider Nurse Practitioner Women's Health
DX: N92.0 Excessive and frequent menstruation with regular cycle (principal)
CPT/HCPCS: 76830; 76856

== ENCOUNTER → 2023-02-11 | Outpatient (CLI) | payer BC, SELFPAY ==
--- NOTE | 2023-02-11 15:55 | BI_ITS ---
MAMMOGRAPHY - BILATERAL SCREENING REASON FOR EXAM: Female, 42 years old. Routine annual screening examination. PERTINENT HISTORY: Non-contributory. History of prior right ultrasound-guided breast biopsy. TECHNIQUE: Digital bilateral breast fabian (3D mammographic acquisition) in the CC and MLO projections. 2-D mediolateral oblique (MLO) and craniocaudad (CC) views of both breasts were obtained. CAD: Full Field Digital Mammography with Computer Added Detection was performed. COMPARISON: Comparison is made with prior study dated January 31, 2022 and January 30, 2021. FINDINGS: Breast Composition: The breasts are heterogeneously dense, which may obscure small masses. There are no dominant masses or suspicious calcifications. A tissue clip marker is seen in the deep central slightly lateral aspect of the right breast within a 6.8 mm x 13.2 mm nodule.. No other significant abnormalities are identified. There has been no significant change since the prior study. BI/SCRN MAMM (CAD)W/FABIAN BILAT IMPRESSION: Stable bilateral screening mammogram. Yearly follow-up mammogram recommended. (A) ASSESSMENT CATEGORY: BIRADS Category 2: Benign. A letter regarding these results will be sent to the patient by the facility within 30 days. Approximately 10% of breast cancers are not detected by mammography. A normal mammogram should not delay biopsy of a clinically suspicious abnormality. [id number] Electronically Signed: Philip Willis MD at 10:55 EDT ,
== END | disposition home or self-care (01) ==
LOC: OPBI 15:54
PROVIDERS: PCP Family Medicine; Referring Provider Nurse Practitioner Women's Health; Visit Provider Nurse Practitioner Women's Health
DX: Z12.31 Encounter for screening mammogram for malignant neoplasm of breast (principal)
CPT/HCPCS: 77063; 77067

== ENCOUNTER 2023-03-05 06:27 | Day surgery (SDC) | payer BC, SELFPAY ==
[2023-03-05 06:51] LABS: Internal QC Validated? YES +Cl - CLEAR BKGD; Pregnancy, Urine Negative Negative
[2023-03-05 06:56] VITALS: BP 114/71; PULSE 77; RESP 16; TEMP 36.6; O2SAT 98; BMI 44.0
[2023-03-05] MEDS: Lactated Ringers 1,000 ML 15 ML IV (07:01)
--- NOTE | 2023-03-05 07:07 | PCM.HP.BLA ---
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 Is patient in pain?: No Allergies bupropion [From Wellbutrin SR] Allergy (Intermediate, Verified 02/15/23 14:33) tongue swellingescitalopram [From Lexapro] Allergy (Intermediate, Verified 02/15/23 14:33) tongue swellingsalmeterol xinafoate [From Serevent] Allergy (Verified 02/15/23 14:33) Swelling Medications NK 02/15/23 [History Confirmed 02/15/23] PFSH Medical History (Updated 02/15/23 @ 14:32 by Vero Cooney) Exercise-induced asthma Family history of colon cancer Hepatic hemangioma Rectal bleeding Surgical History (Updated 02/15/23 @ 14:32 by Vero Cooney) Hx of cholecystectomy S/P tonsillectomy Family History (Updated 02/15/23 @ 14:32 by Vero Cooney) Mother Diabetes Heart disease Kidney disease Myocardial infarction CVA (cerebral vascular accident)Father Cancer appendixAunt Colon cancer maternal- misdiagnosed as hemorrhoidsGrandfather Colon cancer Social History current occupational status: employed current occupation: [employer] Smoking Status: Former smoker Tobacco: How many years used: 4 how long ago did patient quit smoking: over 10 years alcohol intake: never substance use type: does not use caffeine: No what type of physical activity do you participate in: walking seatbelt use: always do you feel safe at home: Yes 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 Patient reports she has bright red blood with every bowel movement. This is been going on for several months. She denies pain with bowel movements. She denies any abdominal pain. She has never had a colonoscopy. She does have a family history of colon cancer in 2 distant relatives. ROS General General: Yes weight change; No appetite, fatigue, colon cancer, breast cancer or weakness HEENT HEENT: No difficulty swallowing, eye injury, eye surgery, swollen glands or hoarseness Endo Endocrine: No thyroid disease, diabetes mellitus, thyroid cancer, Hair loss, heat intolerance or cold intolerance Skin Skin: No rash or changing moles Breast Breast: No left breast lump, right breast lump, nipple discharge, breast pain, abnormal mammogram, abnormal US or breast enlargement Musc Musculoskeletal: No back problems, arthritis, rheumatoid arthritis, gout or joint pain Cardio Cardiovascular: No murmur, pacemaker, heart disease, atrial fibrillation, high blood pressure, heart attack, heart stent, palpitations, shortness of breat with exertion or chest pain Psych Psychiatric: No depression, anxiety or hearing voices Resp Respiratory: No shortness of breath, Yes sleep apnea, No cough, No COPD, Yes asthma, No emphysema and No wheezing Gastro Gastrointestinal: No abdominal pain, No nausea or vomiting, No diarrhea, No constipation, Yes blood in stool, No acid reflux, Yes hemorrhoids, No ulcers, No gallbladder problem and No black,tarry stools Baudilio Hematologic: No blood thinners, No blood disorders, No bleeding, No anemia and No blood clots Neuro Neurologic: No system reviewed and no additional complaints, except as documented, No as per HPI, No abnormal gait, No abnormal hearing, No abnormal movements, No abnormal speech, No behavioral changes, No burning sensations, No confusion, No convulsions, No disequilibrium, No dizziness, No localized weakness, No frequent falls, No headache(s), No lack of coordination, No loss of vision, No memory loss, No numbness, No other visual disturbances, No radicular pain, No restless legs, No sensory deficit, No syncope, No tingling, No tremor(s), No weakness and No other Exam Const General: cooperative Orientation: alert and oriented x3 HENMT Head: normal to inspection Neck Neck: normal visual inspection and full ROM Chest Chest palpation & inspection: normal inspection of the chest Resp Effort & Inspection: normal respiratory effort Auscultation: clear to auscultation bilaterally Cardio Rate: regular rate Rhythm: regular rhythm GI Inspection: non-distended Palpation: soft and nontender Skin General: no rashes or lesions noted Neuro General: patient alert and patient oriented x3 Extrem General: full ROM Psych Appearance: grossly normal Mental Status: mental status grossly normal Assessment and Plan Assessment and Plan (1) Rectal bleeding: Status: Acute Plan: The patient does have history of hemorrhoids and it sounds like hemorrhoidal bleeding as it is painless bright red bleeding with every bowel movement. Despite this I would like to start with a colonoscopy to ensure that there is nothing more proximal and to examine the rectal canal on retroflexion. If the patient does have hemorrhoids I would recommend elective hemorrhoidectomy and I will discuss this further with her after colonoscopy. I explained endoscopy in detail to the patient. I explained the risks including but not limited to stroke or heart attack with anesthesia, perforation of the GI tract, bleeding, infection. I explained that any of these could necessitate further emergency surgery. The patient understands and all questions were answered sufficiently. The patient wishes to proceed with procedure. Chase Valdivia MD Pager: [facility] [address] [place] [address], [address] [place] [phone] Office: I have seen and examined the patient and reviewed the H&P. THere are no changes
[2023-03-05 07:50] VITALS: BP 114/71; BP 96/64; PULSE 66; RESP 18; TEMP 36.7; O2SAT 100
--- NOTE | 2023-03-05 07:51 | OP.COLON_ITS ---
Patient Name: Bernadine Bean Procedure Date: 03/05/2023 7:14 AM Date of : 1980 Age: 43 Procedure: Colonoscopy Indications: Anal bleeding Providers: Chase Valdivia MD Referring MD: Kervin Burt Medicines: Monitored Anesthesia Care Patient Profile: This is a 43 year old female. Refer to note in patient chart for documentation of history and physical. Last Colonoscopy: none. The patient's first colonoscopy is today. Complications: No immediate complications. Procedure: Pre-Anesthesia Assessment: - Prior to the procedure, a History and Physical was performed, and patient medications and allergies were reviewed. The patient's tolerance of previous anesthesia was also reviewed. The risks and benefits of the procedure and the sedation options and risks were discussed with the patient. All questions were answered, and informed consent was obtained. Prior Anticoagulants: The patient has taken no anticoagulant or antiplatelet agents. After reviewing the risks and benefits, the patient was deemed in satisfactory condition to undergo the procedure. After I obtained informed consent, the scope was passed under direct vision. Throughout the procedure, the patient's blood pressure, pulse, and oxygen saturations were monitored continuously. The colonoscope was introduced through the anus and advanced to the cecum, identified by appendiceal orifice and ileocecal valve. The colonoscopy was performed without difficulty. The patient tolerated the procedure well. The quality of the bowel preparation was good. The ileocecal valve, appendiceal orifice, and rectum were photographed. Scope In: 7:31:26 AM Scope Withdrawal Time 0 hours 5 minutes 19 seconds Scope Out: 7:44:30 AM Total Procedure Duration Time 0 hours 13 minutes 4 seconds Findings: The entire examined colon appeared normal on direct and retroflexion views. Impression: - The entire examined colon is normal on direct and retroflexion views. - No specimens collected. Recommendation: - Discharge patient to home. - Resume previous diet. - Continue present medications. - Repeat colonoscopy in 10 years for screening purposes. Procedure Code(s): --- Professional --- 55031, Colonoscopy, flexible; diagnostic, including collection of specimen(s) by brushing or washing, when performed (separate procedure) Diagnosis Code(s): --- Professional --- K62.5, Hemorrhage of anus and rectum CPT copyright 2021 [employer]. All rights reserved. The codes documented in this report are preliminary and upon circular tank cooper review may be revised to meet current compliance requirements. Chase Valdivia MD 03/05/2023 7:50:53 AM This report has been signed electronically. Number of Addenda: 0 Note Initiated On: 03/05/2023 7:14 AM
--- NOTE | 2023-03-05 07:51 | OP.CCLET_ITS ---
03/05/2023 Kervin Burt [address] [place] [address] Re : Colonoscopy procedure for Bernadine Bean Dear Dr. Burt This procedure was performed on Sunday, March 05, 2023. My impressions and recommendations are as follows: Impressions : - The entire examined colon is normal on direct and retroflexion views. - No specimens collected. Recommendations : - Discharge patient to home. - Resume previous diet. - Continue present medications. - Repeat colonoscopy in 10 years for screening purposes. My findings are described in the full procedure note, which is enclosed. If I can be of further assistance, please feel free to contact me at Doctor phone number(s): , Work: . Sincerely, Chase Valdivia MD 03/05/2023 7:50:53 AM This report has been signed electronically.
[2023-03-05 07:55] VITALS: BP 100/61; BP 114/71; PULSE 62; RESP 18; O2SAT 100
[2023-03-05 08:00] VITALS: BP 109/64; BP 114/71; PULSE 61; RESP 16; O2SAT 99
[2023-03-05 08:05] VITALS: BP 114/71; BP 99/82; PULSE 61; RESP 16; O2SAT 99
[2023-03-05 08:18] VITALS: BP 114/71
== END 2023-03-05 08:19 | disposition home or self-care (01) ==
LOC: EN 06:28 → AC 06:29
PROVIDERS: Anesthesiology; PCP Family Medicine; Referring Provider Family Medicine; Visit Provider Surgery
PROC: 0DJD8ZZ Inspection of Lower Intestinal Tract, Via Natural or Artificial Opening Endoscopic (ICD-10-PCS; CPT 45378; principal; 2023-03-05 07:25)
DX: K62.5 Hemorrhage of anus and rectum (principal); Z80.0 Family history of malignant neoplasm of digestive organs; Z87.891 Personal history of nicotine dependence
CPT/HCPCS: 45378; 81025; J7120; J2405